=== PATIENT | male | born 1940 | race Caucasian/White ===

== ENCOUNTER → 2017-10-27 | Outpatient (CLI) | payer MEDICARE ==
[2016-08-02 12:00] VITALS: BMI 20.8
[~2017-10-27] MED LIST: ACE325 PO; ASPI-1441 PO; ATOR20TA22 PO; ATR10 PO; CARV12.577 PO; CARV25TA77 PO; CHOLESTEROL PILL; CLO75 PO; CLOP75TA43 PO; DIABETES PILL; DIURETIC; FAMO10TA86 PO; FISH1CAP18 PO; FISHOIL; FUR40I IV; FURO-43 PO; FURO40TA35 PO; GLIM2TAB42 PO; GLUC-192 PO; GLY25 PO; IBUP600T22 PO; IRON; LASIX; LOSA25TA50 PO; MET500 PO; METO5TAB79 PO; MULT-820 PO; NIT6.5 PO; NITR0.4T3 SL; POTA2.5T7 PO; VIT1CAPS34; [UNRECOGNIZED DRUG - CODE] IV; [UNRECOGNIZED DRUG - OTHER]; [UNRECOGNIZED DRUG - OTHER] PO
[2017-10-27 07:58] LABS: PLATELET COUNT, AUTOMATED 180 K/uL (150-450)
== END ==
LOC: LAB 07:23
PROVIDERS: ATTEND Internal Medicine Nephrology
DX: E11.22 Type 2 diabetes mellitus with diabetic chronic kidney disease (principal); N18.3 Chronic kidney disease, stage 3 (moderate); R80.1 Persistent proteinuria, unspecified
CPT/HCPCS: 36415; 82040; 82310; 82374; 82435; 82565; 82570; 82947; 83036; 84100; 84132; 84156; 84295; 84520; 85025

== ENCOUNTER → 2017-11-10 | Outpatient (CLI) | payer MEDICARE ==
[2016-08-02 12:00] VITALS: BMI 20.8
== END ==
LOC: LAB 07:38
PROVIDERS: ATTEND Internal Medicine Nephrology
DX: N18.3 Chronic kidney disease, stage 3 (moderate) (principal)
CPT/HCPCS: 36415; 82310; 82374; 82435; 82565; 82947; 84132; 84295; 84520

== ENCOUNTER 2018-01-28 16:13 | Inpatient (IN) | payer MEDICARE ==
[~2018-01-28] VITALS: Ht 188 cm; Wt 89.4 kg
[~2018-01-28 16:13] MED LIST changes: -LOSA25TA50 PO; +LOSA25TA52 PO
--- NOTE | 2018-01-28 16:18 | ER Report ---
History and Physical Time Seen By MD: 16:18 (BITA GRACIA DO) Time Seen By MD: 18:32 (TERESA ALVAREZ DO) HPI/ROS CHIEF COMPLAINT: lower extremity swelling and wt gain HISTORY OF PRESENT ILLNESS: PT states that the last few days his lower extremities have been swelling. Pt also noticed at 50# wt gain. Pt used to be on a water pill but was taken off it a month ago. Pt state that he came in today because felt sob and some chest pressure this afternoon. Pt states that he feels more sob if he lies flat. Pt sleeps with two pillows. Pt had a cardiac bypass 2 yrs ago and states that he has not had any cp since then. PT states he is in the process of moving to [place] but his co founder & ceo is Dr. Santana here. No nausea or vomiting. REVIEW OF SYSTEMS: Constitutional: No fever, no chills. Eyes: No discharge. ENT: No sore throat. Cardiovascular: + chest pain, no palpitations, + orthopnea Respiratory: No cough, + shortness of breath. Gastrointestinal: No abdominal pain, no vomiting. Genitourinary: No hematuria. Musculoskeletal: No back pain. Skin: No rashes. Neurological: No headache. (BITA GRACIA DO) HPI/ROS Please see Dr. Gracia's note (TERESA ALVAREZ DO) Allergies: Coded Allergies: No Known Drug Allergies (Unverified , 01/28/18) Home Meds Active Scripts Furosemide (FUROSEMIDE) 40 Mg Tablet, 1 TAB PO DAILY, #30 TAB 1 Refill Prov:MACY BALTAZAR MD 01/29/18 Cephalexin Monohydrate (CEPHALEXIN) 250 Mg Cap, 250 MG PO QID for 10 Days, #40 CAP 0 Refills Prov:MCAY BALTAZAR MD 01/29/18 Nitroglycerin (NITROGLYCERIN) 0.4 Mg Tab.subl, 0.4 MG SL Q5MIN PRN for CHEST PAIN, #1 BOTTLE Prov:SYLVIA BALTAZAR MD 08/01/16 Reported Medications Carvedilol (COREG) 25 Mg Tablet, 25 MG PO BID, #10 TAB 08/01/16 Losartan Potassium (LOSARTAN POTASSIUM) 25 Mg Tablet, 25 MG PO QDAY 09/25/15 Glimepiride (Amaryl) 2 Mg Tablet, 6 MG PO QAM 07/15/11 Multivitamins (Multivitamin) 1 Tab Tablet, 1 TAB PO DAILY 07/15/11 Atorvastatin Calcium (Lipitor) 20 Mg Tablet, 40 MG PO QHS, 0 Refills 05/29/08 Aspirin (Aspirin Ec) 81 Mg Tablet.dr, 81 MG PO QDAY, 0 Refills 05/29/08 Discontinued Reported Medications Clopidogrel Bisulfate (PLAVIX) 75 Mg Tablet, 1 TAB PO QDAY, TAB 08/01/16 Metolazone (METOLAZONE) 5 Mg Tablet, 5 MG PO 3XW, #12 08/01/16 Discontinued Scripts Furosemide (LASIX) 40 Mg Tablet, 1 TAB PO BID, #60 TAB Prov:HODAN MIRZA DO 08/03/16 Past Medical/Surgical History Pmhx: hyperlipid, chronic kidney ds, deaf in L ear, CAD, hyponatermiea, DM2, NONSTEMI, CHF Pshx: aicd, hip fx, cabg (BITA GRACIA DO) Reviewed Nurses Notes: Yes Old Medical Records Reviewed: Yes (BITA GRACIA DO) Hx Smoking: No Smoking Status: Never Smoker Exposure to Second Hand Smoke?: No Hx Substance Use Disorder: No Hx Alcohol Use: No (BITA GRACIA DO) Constitutional Vital Sign - Last 24 Hours 01/28/18 01/28/18 01/28/18 01/28/18 16:18 16:21 16:30 16:43 Temp 98.4 Pulse 76 79 Resp 20 12 B/P (MAP) 144/89 144/89 (107) 144/87 (106) Pulse Ox 95 95 O2 Delivery Room Air 01/28/18 01/28/18 01/28/18 01/28/18 17:00 17:13 17:30 17:43 Pulse 71 73 Resp 20 21 B/P (MAP) 137/88 (104) 126/78 (94) Pulse Ox 94 95 01/28/18 01/28/18 01/28/18 01/28/18 17:48 18:00 18:18 18:30 Pulse 71 74 Resp 20 19 B/P (MAP) 144/88 (106) 131/82 (98) Pulse Ox 95 94 01/28/18 01/28/18 01/28/18 01/28/18 18:35 18:50 19:00 19:05 Pulse 70 70 72 Resp 14 14 17 B/P (MAP) 138/91 (107) Pulse Ox 93 95 95 01/28/18 01/28/18 01/28/18 19:20 19:30 19:35 Pulse 73 70 Resp 18 16 B/P (MAP) 135/83 (100) Pulse Ox 96 94 (TERESA ALVAREZ DO) Physical Exam General Appearance: The patient is alert, has no immediate need for airway protection and no signs of toxicity. Eyes: Pupils equal and round no pallor or injection, EOMI ENT: no pharyngeal erythema or exudates, Mucous membranes are moist, TM are nl b/l Respiratory: There are no retractions, lungs b/l rhonchi at bases Cardiovascular: Regular rate and rhythm. pulses are equal and symmetrical Gastrointestinal: Abdomen is soft and non tender, no masses, bowel sounds arabella l, no guarding, no rigidity or rebound Neurological: Cranial nerves II-XII grossly intact, no sensory or motor loss Skin: Warm and dry, + skin break down and ulcerations along the medial aspect of his right foot. Musculoskeletal: Neck is supple non tender, no vertebral tenderness Extremities are nontender, + pitting edema and have full range of motion. DIFFERENTIAL DIAGNOSIS: After history and physical exam differential diagnosis was considered for CHF, acs, vascular dis, acute mi (BITA GRACIA DO) Physical Exam Please see Dr. Gracia (TERESA ALVAREZ DO) Medical Decision Making Data Points Result Diagram: 01/28/18 1626 01/29/18 0529 Laboratory Hematology Test 01/28/18 16:26 01/28/18 19:57 Red Blood Count 3.26 M/uL (4.00-5.60) Mean Corpuscular Volume 101.7 fL (80.0-96.0) Mean Corpuscular Hemoglobin 34.2 pg (26.0-33.0) Mean Corpuscular Hemoglobin Concent 33.7 g/dL (32.0-36.0) Red Cell Distribution Width 13.7 % (11.5-14.5) Mean Platelet Volume 7.4 fL (7.2-11.1) Neutrophils (%) (Auto) 79.5 % (39.4-72.5) Lymphocytes (%) (Auto) 9.3 % (17.6-49.6) Monocytes (%) (Auto) 7.8 % (4.1-12.4) Eosinophils (%) (Auto) 2.5 % (0.4-6.7) Basophils (%) (Auto) 0.9 % (0.3-1.4) Nucleated RBC Relative Count (auto) 0.0 /100WBC Neutrophils # (Auto) 4.7 K/uL (2.0-7.4) Lymphocytes # (Auto) 0.6 K/uL (1.3-3.6) Monocytes # (Auto) 0.5 K/uL (0.3-1.0) Eosinophils # (Auto) 0.1 K/uL (0.0-0.5) Basophils # (Auto) 0.1 K/uL (0.0-0.1) Nucleated RBC Absolute Count (auto) 0.00 K/uL Sodium Level 135 mmol/L (137-145) Potassium Level 5.7 mmol/L (3.5-5.0) Chloride Level 108 mmol/L (98-107) Carbon Dioxide Level 15 mmol/L (22-30) Blood Urea Nitrogen 50 mg/dl (9-21) Creatinine 1.80 mg/dl (0.66-1.25) Glomerular Filtration Rate Calc 36.9 Random Glucose 178 mg/dl (75-110) Calcium Level 8.4 mg/dl (8.4-10.2) Total Bilirubin 0.7 mg/dl (0.2-1.3) Aspartate Amino Transf (AST/SGOT) 22 U/L (0-35) Alanine Aminotransferase (ALT/SGPT) 37 U/L (0-56) Alkaline Phosphatase 75 U/L (0-126) B-Type Natriuretic Peptide 1920 pg/ml (0-100) Total Protein 6.5 g/dl (6.3-8.2) Albumin 3.8 g/dl (3.5-5.0) Troponin I 0.013 ng/ml Chemistry Test 01/28/18 16:26 01/28/18 19:57 White Blood Count 5.9 k/uL (4.5-11.0) Red Blood Count 3.26 M/uL (4.00-5.60) Hemoglobin 11.2 g/dL (14.0-18.0) Hematocrit 33.2 % (42.0-52.0) Mean Corpuscular Volume 101.7 fL (80.0-96.0) Mean Corpuscular Hemoglobin 34.2 pg (26.0-33.0) Mean Corpuscular Hemoglobin Concent 33.7 g/dL (32.0-36.0) Red Cell Distribution Width 13.7 % (11.5-14.5) Platelet Count 209 K/uL (150-450) Mean Platelet Volume 7.4 fL (7.2-11.1) Neutrophils (%) (Auto) 79.5 % (39.4-72.5) Lymphocytes (%) (Auto) 9.3 % (17.6-49.6) Monocytes (%) (Auto) 7.8 % (4.1-12.4) Eosinophils (%) (Auto) 2.5 % (0.4-6.7) Basophils (%) (Auto) 0.9 % (0.3-1.4) Nucleated RBC Relative Count (auto) 0.0 /100WBC Neutrophils # (Auto) 4.7 K/uL (2.0-7.4) Lymphocytes # (Auto) 0.6 K/uL (1.3-3.6) Monocytes # (Auto) 0.5 K/uL (0.3-1.0) Eosinophils # (Auto) 0.1 K/uL (0.0-0.5) Basophils # (Auto) 0.1 K/uL (0.0-0.1) Nucleated RBC Absolute Count (auto) 0.00 K/uL Glomerular Filtration Rate Calc 36.9 Calcium Level 8.4 mg/dl (8.4-10.2) Total Bilirubin 0.7 mg/dl (0.2-1.3) Aspartate Amino Transf (AST/SGOT) 22 U/L (0-35) Alanine Aminotransferase (ALT/SGPT) 37 U/L (0-56) Alkaline Phosphatase 75 U/L (0-126) B-Type Natriuretic Peptide 1920 pg/ml (0-100) Total Protein 6.5 g/dl (6.3-8.2) Albumin 3.8 g/dl (3.5-5.0) Troponin I 0.013 ng/ml (TERESA ALVAREZ DO) EKG/Imaging EKG Interpretation nsr @ 77 with first degree av block with low voltage. Similar to prior ekg on february 2016 Imaging + small pleural effusion evidient on right. See report (BITA GRACIA DO) ED Course/Re-evaluation Clinical Indication for ER IV: IV Access ED Course check labs 01/28/2018 5:38:30 pm Pt is starting to urinate post lasix. Will keep pt here for second troponin. If he shows any bump in troponin he will need to be transferred. If no change in troponin he can stay here for chf exacerbation and restart his lasix. If he chooses not to stay then i would continue oral lasix until he can see his co founder & ceo next week. Decision to Disposition Date: Jan 28, 2018 Decision to Disposition Time: 16:28 (BITA GRACIA DO) ED Course I took over care of this patient at 1800. Plan is to repeat a 2nd troponin tendency to admission due to patient's significant weight gain likely secondary to congestive heart failure and the patient stopping Lasix approximately 1 month prior due to dehydration. Patient received 40 mg of IV Lasix for diuresis. I reevaluated the patient after repeat troponin back at 0.013 change to only from 0.012 from earlier in the patient denied chest pain, chest pressure. Patient was well-appearing at that time, hemodynamically stable. I talked to Dr. Sabrina oviedo who is the internal medicine doctor information technology coordinator who accepted the patient to his service for inpatient diuresis and stabilization. Patient was stable at time of admission. Decision to Disposition Date: Jan 28, 2018 Decision to Disposition Time: 20:53 (TERESA ALVAREZ DO) Depart Departure Latest Vital Signs Vital Signs Date Time Temp Pulse Resp B/P (MAP) Pulse Ox O2 Delivery O2 Flow Rate FiO2 01/28/18 19:35 70 16 94 01/28/18 19:30 135/83 (100) 01/28/18 16:18 98.4 Room Air (TERESA ALVAREZ DO) Impression: Primary Impression: Congestive heart failure Additional Impression: Edema of lower extremity Condition: Improved Disposition: Admitted from ER Referrals: HODAN LIANG MD (PCP) SIMI SANTANA MD 2 Days New Scripts Furosemide (FUROSEMIDE) 40 Mg Tablet 1 TAB PO DAILY, #30 TAB 1 Refill Prov: MACY BALTAZAR MD 01/29/18 Cephalexin Monohydrate (CEPHALEXIN) 250 Mg Cap 250 MG PO QID for 10 Days, #40 CAP 0 Refills Prov: MACY BALTAZAR MD 01/29/18 Problem Qualifiers Primary Impression: Congestive heart failure Heart failure type: unspecified Heart failure chronicity: acute Qualified Codes: I50.9 - Heart failure, unspecified BITA GRACIA V DO Jan 28, 2018 16:18 TERESA ALVAREZ DO Jan 28, 2018 18:33
[2018-01-28] MEDS ORDERED: ASPIRIN 81 MG CHEW PO ONE (16:25)
--- NOTE | 2018-01-28 16:33 | EKG ---
FACILITY: [facility] - [place] PATIENT NAME: YULISSA OLIVA : [id number] MR: [id number] V: [id number] EXAM DATE: ORDERING PHYSICIAN: BITA GRACIA TECHNOLOGIST: Test Reason : chest pain Blood Pressure : / mmHG Vent. Rate : 076 BPM Atrial Rate : 076 BPM P-R Int : 234 ms QRS Dur : 112 ms QT Int : 398 ms P-R-T Axes : 028 001 081 degrees QTc Int : 447 ms Sinus rhythm with 1st degree AV block Low voltage QRS Non-specific intraventricular conduction delay Abnormal ECG When compared with ECG of 31-JUL-2016 09:14, No significant change was found Confirmed by Cody Alfredo ([id number]) on 01/28/2018 8:11:19 PM Referred By: Confirmed By:Cody Myers
[2018-01-28 16:39] LABS: PLATELET COUNT, AUTOMATED 209 K/uL (150-450)
[2018-01-28] MEDS ORDERED: FUROSEMIDE 40 MG/4 ML VIAL IVP ONE ×2 (17:10→23:30)
--- NOTE | 2018-01-28 17:11 | RADIOLOGY IMAGING REPORT ---
FACILITY: [facility] PATIENT NAME: Tanner Gill : 1940 MR: [id number] V: [id number] EXAM DATE: ORDERING PHYSICIAN: BITA GRACIA TECHNOLOGIST: [place] [facility] [place]anner [place] : 1940 Visit/Account:[id number] Date of Sevice: 01/28/2018 2 VIEWS CHEST INDICATION: Shortness of breath and leg swelling. COMPARISON: 07/31/2016. FINDINGS: Cardiac silhouettes upper limits normal for size. Mediastinal silhouette and pulmonary vessels within normal limits. Left subclavian 2-lead pacemaker is in place and unchanged. Sternotomy changes. There continues be elevation left hemidiaphragm. No focal consolidations or pneumothorax. Mild blunti ng the right costophrenic angle. Left costophrenic angle appears to be well visualized. No discrete n odules. Upper abdomen is unremarkable. No acute bony abnormality. IMPRESSION: 1. No focal infiltrate or edema. 2. Minimal blunting of the right costophrenic angle could be due to pleural thickening or small effus ion. Report Dictated By: Barry Pastor at 01/28/2018 5:04 PM Report E-Signed By: Barry Pastor at 01/28/2018 5:08 PM WSN:[id number]
[2018-01-28 21:35] VITALS: BP 142/85
[2018-01-28] MEDS ORDERED: ACETAMINOPHEN 325 MG TAB PO PRN (22:50)
[2018-01-28] MEDS ORDERED: FLUSH 10 ML SYR IVP PRN (22:50)
[2018-01-28] MEDS ORDERED: INFLUENZA VIRUS VAC 0.5ML SYR IM ONLY ONE (22:50)
[2018-01-28] MEDS ORDERED: ONDANSETRON 4 MG/2 ML VIAL IVP PRN (22:50)
--- NOTE | 2018-01-29 00:33 | History & Physical ---
History of Present Illness Chief Complaint edema, ZEPEDA History of Present Illness 77M with PMHx CHF presented with reported 50lb weight gain, LE edema, SOB. Reports he was taken off diuretic and doing ok until 1 week ago. Noted increase in edema and weight gain. Last echo on file is 2008, he is unsure when his last echo was or what the results were. Unable to lie flat but says this is chronic and primarily unchanged. Does report moving currenlty and as such has not adhered to medication regimen missing occasional doses. History Problems: (1) CKD (chronic kidney disease) stage 3, GFR 30-59 ml/min Status: Chronic (2) Congestive heart failure Status: Chronic (3) CAD (coronary artery disease) Status: Chronic Home Meds Active Scripts Nitroglycerin (NITROGLYCERIN) 0.4 Mg Tab.subl, 0.4 MG SL Q5MIN PRN for CHEST PAIN, #1 BOTTLE Prov:SYLVIA BALTAZAR MD 08/01/16 Reported Medications Carvedilol (COREG) 25 Mg Tablet, 25 MG PO BID, #10 TAB 08/01/16 Losartan Potassium (LOSARTAN POTASSIUM) 25 Mg Tablet, 25 MG PO QDAY 09/25/15 Glimepiride (Amaryl) 2 Mg Tablet, 6 MG PO QAM 07/15/11 Multivitamins (Multivitamin) 1 Tab Tablet, 1 TAB PO DAILY 07/15/11 Atorvastatin Calcium (Lipitor) 20 Mg Tablet, 40 MG PO QHS, 0 Refills 05/29/08 Aspirin (Aspirin Ec) 81 Mg Tablet.dr, 81 MG PO QDAY, 0 Refills 05/29/08 Discontinued Reported Medications Clopidogrel Bisulfate (PLAVIX) 75 Mg Tablet, 1 TAB PO QDAY, TAB 08/01/16 Metolazone (METOLAZONE) 5 Mg Tablet, 5 MG PO 3XW, #12 08/01/16 Discontinued Scripts Furosemide (LASIX) 40 Mg Tablet, 1 TAB PO BID, #60 TAB Prov:HODAN MIRZA DO 08/03/16 Allergies: Coded Allergies: No Known Drug Allergies (Unverified , 01/28/18) Patient History: FH: colon cancer BROTHER OR SISTER, Age:71 FH: depression FATHER, , Age:74 FH: diabetes mellitus BROTHER OR SISTER, Age:71 FH: myocardial infarction MOTHER (Bierke), , Age:68 FH: stomach cancer BROTHER OR SISTER, Age:71 Hx Smoking: No Smoking Status: Never Smoker Exposure to Second Hand Smoke?: No Caffeine Intake: Coffee Caffeine/Cups Per Day: 4 CUPS/DAY Hx Alcohol Use: No Hx Substance Use Disorder: No Social Drug Use: Never History of IV Drug Use: No Review of Systems All Systems Reviewed/Normal: Yes, Except as Noted Constitutional: Weight Gain Cardiovascular: Other (+ edema) Respiratory: Shortness of Breath Exam Vital Signs Vital Signs Date Time Temp Pulse Resp B/P (MAP) Pulse Ox O2 Delivery O2 Flow Rate FiO2 01/28/18 22:10 94 Room Air 01/28/18 21:10 72 10 01/28/18 21:00 135/86 (102) 01/28/18 16:18 98.4 General Appearance: Alert, Awake, No Acute Distress Neuro: No Gross deficits Eyes: PERRLA ENT: Normal Neck: No Masses Cardiovascular: Normal Rhythm & Peripheral Pulses (+ 3/6 murmus at LSB, displaced PMI) Respiratory: No Respiratory Distress GI: Abd Soft and Non-Tender Lymph: Cervical Nodes Benign Musculoskeletal: No Weakness/Pain Extremities: Soft and Non Tender, Warm, Pulses, Edema (moderate to mid thigh) Integumentary: Generalized Fragile Skin Psych: Appropriate Mood & Affect Medical Decision Making Data Points Result Diagram: 01/28/18 1626 01/28/18 162 Assessment and Plan Problems: (1) Congestive heart failure Status: Chronic Assessment & Plan: Acute on chronic heart failure. Diuresis with IV Lasix, monitor electrolytes. Likely needs diuretic added back to regimen. Has permanent implantable defibrillator, he does not seem clear on why he has it. ECHO pending. CXR possible pleural effusion on left, cardiac silhouette ULN. (2) CKD (chronic kidney disease) stage 3, GFR 30-59 ml/min Status: Chronic Assessment & Plan: Cr 1.8 on admission, will monitor with diuresis. 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 (3) Edema of lower extremity Status: Acute Assessment & Plan: Secondary to decompensation of CHF. Diuresis, R slightly greater than L may consider Doppler. (4) CAD (coronary artery disease) Status: Chronic Assessment & Plan: Previous CABG. Per pt 6 vessel, on statin, BB, ARB. Will continue so long as BP does not preclude diuresis. (5) Hyperkalemia Status: Chronic Assessment & Plan: Mild elevation, no EKG changes. Should resolve with diuresis. Likely caused by ARB and CKD. Venous Thromboembolism Antithrombotics Is Pt On Any Antithrombotics?: Yes Exam Sepsis Risk: No Definite Risk Problem Qualifiers (1) Congestive heart failure: Heart failure type: unspecified Heart failure chronicity: acute on chronic Qualified Codes: I50.9 - Heart failure, unspecified BARRINGTON RICHARDS DO Jan 29, 2018 00:33
[2018-01-29 03:01] VITALS: BP 136/84
[2018-01-29 08:00] VITALS: BP 146/86
[2018-01-29] MEDS: INSULIN HUM LISPRO 100 UN/ML 3 ML VIAL SUBQ PRN ×2 (08:18→11:24)
[2018-01-29] MEDS: FUROSEMIDE 40 MG/4 ML VIAL IVP SCH ×2 (08:20→12:55)
[2018-01-29] MEDS ORDERED: ENOXAPARIN 40 MG/0.4ML SYR SC SCH (09:00)
[2018-01-29] MEDS ORDERED: LOSARTAN POTASSIUM 50 MG TAB PO SCH (09:00)
[2018-01-29] MEDS ORDERED: CARVEDILOL 25 MG TABLET PO SCH (09:00)
[2018-01-29] MEDS ORDERED: GLIMEPIRIDE 2 MG TAB PO SCH (09:00)
[2018-01-29] MEDS ORDERED: ASPIRIN 81 MG ENTERIC COATED PO SCH (09:00)
[2018-01-29 09:12] VITALS: Ht 188 cm; Wt 89.4 kg
[2018-01-29] MEDS ORDERED: CEPHALEXIN MONO 500 MG CAP PO SCH (09:15)
--- NOTE | 2018-01-29 09:28 | Hospitalist Progress Note ---
Subjective Progress Notes Subjective He reports feeling "good". Less edema. No CP/dyspnea at rest. Physical Exam Vital Signs Date Time Temp Pulse Resp B/P (MAP) Pulse Ox O2 Delivery O2 Flow Rate FiO2 01/29/18 03:01 97.6 68 12 136/84 (101) 94 Room Air Intake and Output 01/29/18 07:00 Output Total 3160 ml Balance -3160 ml Output Urine Total 3160 ml # Voids 5 General Appearance: Alert, Awake Cardiovascular: Other (Regular with distant tones soft systolic murmur) Respiratory: Other (essentially clear) GI: Soft and Non-Tender Extremities: Warm, Perfused, Edema (2+ to mid-thighs bilaterally) Integumentary: Generalized Fragile Skin, Other (ulcers over right medial malleolous/distal tibia area with some mild erythema surrounding/no dranage at present) Psych: Alert & Oriented X3 Result Diagram: 01/28/18 1626 01/29/18 0529 Assessment and Plan Problems: (1) Congestive heart failure Status: Chronic Assessment & Plan: Acute on chronic heart failure. Most likely due to missing several days of his medications and having his diuretic regimen stopped several months ago. He has diuresed with IV Lasix. He likely needs diuretic added back to regimen. Echocardiogram pending. (2) CKD (chronic kidney disease) stage 3, GFR 30-59 ml/min Status: Chronic Assessment & Plan: Cr 1.8 on admission. Will continue to monitor with diuresis. 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 (3) Edema of lower extremity Status: Acute Assessment & Plan: Secondary to decompensation of CHF. Diuresis, R slightly greater than L may consider Doppler. (4) CAD (coronary artery disease) Status: Chronic Assessment & Plan: Previous CABG. Will continue aspirin, statin, beta chely. (5) Hyperkalemia Status: Chronic Assessment & Plan: Resolved. We have stopped ARB. Mild elevation, no EKG changes. Improved with diuresis. Likely caused by ARB and CKD. 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 He may have difficulty healing these due to the edema/vascular disease. Will have PT wound care see for recommendations. Start Keflex 250mg PO QID (renal dosed). Exam Sepsis Risk: No Definite Risk Problem Qualifiers (1) Congestive heart failure: Heart failure type: unspecified Heart failure chronicity: acute on chronic Qualified Codes: I50.9 - Heart failure, unspecified MACY BALTAZAR MD Jan 29, 2018 09:27
[2018-01-29] MEDS: CEPHALEXIN MONO 250 MG CAP PO SCH ×2 (10:14→13:55)
[2018-01-29 11:16] VITALS: BP 115/74
--- NOTE | 2018-01-29 13:02 | Medical Nutrition Therapy ---
Nutrition Anthropometrics Height (Inches): 74.00 Height (Calculated Centimeters: 187.157228 Weight (Pounds): 197 Weight (Calculated Kilograms): 89.358 BMI: 25.3 Yaron Nutrition Score: Adequate Yaron Nutrition Risk Score: 20 Dietary Referral Nutrition Risk Factors: Nutrition Risk Comment: DIABETIC Physical Findings Physical Appearance: Overweight BMI 25-29 Skin Appearance Skin Appearance: Edema Edema Location Modifier: Both Edema Location: Leg Type of Edema: Degree of Edema: 1+ Gastrointestinal Symptoms GI Symtoms: Tube Present: Bowel Sounds: Recent Bowel Pattern: Stool Characteristics: Nutritional Diagnosis Nutritional Risk Acuity 2: CHF w/Complication Nutritional Risk Acuity 3: Nausea Nutritional Risk Acuity 4: Good Appetite Past Medical History: Hx of CKD, CHF, CAD, and T2DM. Nutritional Acuity: 2-Moderate Nutrition Diagnosis: Over-weight/Obesity Nutrition Etiology: Physiological Causes Nutrition Problem/Etiology/Sym: Overweight/ obese, as related to physiological causes, as evidenced by recent weight gain and edema, after being taken off diuretic. Energy Requirement: 2200 ([place], AF-1.3) Protein Requirement: 70 (.8g/kg) Fluid Requirement: 2200 (1ml/kcal) Diet Type: Diabetic Nutrition Intervention: Cont diet as ordered, Encourage intake Nutrition Monitoring & Eval RD Patient Assessment Time: [address] Assessment Type: RD Assessment Patient Nutrition Acuity: 2-Moderate Follow Up Date: Feb 03, 2018 Nutritional Comment: 01/29. Pt is being treated for edema of both lower extremities and chronic CHF, CKD, CAD, and hyperkalemia. Pt also has a large blister on virgen. Pt has hx of T2DM, currently receiving 1-5 units humalog SUBQ. pt also receiving 40mg potassium depleting diuretic. Noted pt was recently taken off of diuretic 1 week ago by physician, since then has seen increase in weight and edema. Pt reported a 50lb weight gain, likely due to discontinued diuretuc and increase in fluid accumulation. Notable labs include low sodium 135, calcium 8.3 and elevated BUN 49, creatinine 1.8, random BG 167, whole BG 178, and B-natriuretic peptide 1920. Pt is on a diabetic diet, consumed 100% of breakfast meal this morning. Pt is 74in, 197lbs, and has a BMI of 25. Recommend 2200 kcal and 70 g protein each day. Will monitor pt weight. CARLOS MUSE Jan 29, 2018 11:21
[2018-01-29] MEDS ORDERED: FURO-47 PO (13:58)
[2018-01-29] MEDS ORDERED: CEPH250C11 PO (13:58)
--- NOTE | 2018-01-29 14:11 | Hospitalist Depart ---
Discharge Summary Reason for Hosp/Final Diag: (1) Congestive heart failure Status: Chronic Hospital Course & Plan: Acute on chronic heart failure. Most likely due to missing several days of his medications and having his diuretic regimen stopped several months ago. He was diuresed with IV Lasix and seemed to tolerate fairly well. We did add a diuretic back to his regimen (Lasix 40mg daily). We did repeat the echocardiogram and final results are still pending at the time of discharge. He will follow up with Dr. Efrain Santana (cardiology) and Dr. Liang as an outpatient. (2) CKD (chronic kidney disease) stage 3, GFR 30-59 ml/min Status: Chronic Hospital Course & Plan: Creatinine was 1.8 on admission. We did monitor with diuresis and it remained 1.8. He reports his csr (Dr. Stephens) and implementation analyst stopped Lasix because of change in kidney function. He will follow up closely with them as an outpatient. (3) Edema of lower extremity Status: Acute Hospital Course & Plan: Secondary to decompensation of CHF/pulmonary hypertension. He has shown improvement with diuresis. (4) CAD (coronary artery disease) Status: Chronic Hospital Course & Plan: Previous CABG. Will continue aspirin, statin, beta chely. (5) Hyperkalemia Status: Chronic Hospital Course & Plan: Resolved. We initially held his ARB therapy, but have re-started. He will need close follow up on his electrolytes/renal function as an outpatient. (6) Lower extremity ulceration Status: Acute Hospital Course & Plan: He reports these began following injury while working on his cars. He may have difficulty healing these due to the edema/vascular disease. PT wound care team did see him and have recommend he continue to have wound care with them as an outpatient. We have arranged this for him. We also started Keflex 250mg PO QID (renal dosed). Departure Weight (Pounds): 197 Weight (Ounces): 2.0 Result Diagram: 01/28/18162501/29/18 0529 Item Value Date Time Albumin 3.8 g/dl 01/28/18 162 Total Protein 6.5 g/dl 01/28/18 162 Troponin I < 0.012 ng/ml 01/28/18 162 B-Type Natriuretic Peptide 1920 pg/ml H 01/28/18 1626 Troponin I 0.013 ng/ml 01/28/181956 Alkaline Phosphatase 75 U/L 01/28/18 1626 Alanine Aminotransferase (ALT/SGPT) 37 U/L 01/28/18 1626 Aspartate Amino Transf (AST/SGOT) 22 U/L 01/28/18 162 Total Bilirubin 0.7 mg/dl 01/28/18 1626 Calcium Level 8.4 mg/dl 01/28/18 1626 Random Glucose 178 mg/dl H 01/28/18 1626 Glomerular Filtration Rate Calc 36.9 01/28/18 1626 Creatinine 1.80 mg/dl H 01/28/18 1626 Blood Urea Nitrogen 50 mg/dl H 01/28/18 1626 Carbon Dioxide Level 15 mmol/L L 01/28/18 1626 Chloride Level 108 mmol/L H 01/28/18 1626 Potassium Level 5.7 mmol/L H 01/28/18 162 Sodium Level 135 mmol/L L 01/28/18 162 Imaging PATIENT NAME: Tanner Gill : 1940 MR: [id number] V: [id number] EXAM DATE: [id number] ORDERING PHYSICIAN: BITA GRACIA TECHNOLOGIST: Location: [facility] [place] Patient: Tanner Gill : 1940 Visit/Account:[id number] Date of Sevice: 01/28/2018 2 VIEWS CHEST INDICATION: Shortness of breath and leg swelling. COMPARISON: 07/31/2016. FINDINGS: Cardiac silhouettes upper limits normal for size. Mediastinal silhouette and pulmonary vessels within normal limits. Left subclavian 2-lead pacemaker is in place and unchanged. Sternotomy changes. There continues be elevation left hemidiaphragm. No focal consolidations or pneumothorax. Mild blunting the right costophrenic angle. Left costophrenic angle appears to be well visualized. No discrete nodules. Upper abdomen is unremarkable. No acute bony abnormality. IMPRESSION: 1. No focal infiltrate or edema. 2. Minimal blunting of the right costophrenic angle could be due to pleural thickening or small effusion. Report Dictated By: Barry Pastor at 01/28/2018 5:04 PM Report E-Signed By: Barry Pastor at 01/28/2018 5:08 PM WSN:[id number] Condition: Improved Discharge: Home Time Spent: > 30 min Discharge Instructions Home Meds Active Scripts Furosemide (FUROSEMIDE) 40 Mg Tablet, 1 TAB PO DAILY, #30 TAB 1 Refill Prov:MACY BALTAZAR MD 01/29/18 Cephalexin Monohydrate (CEPHALEXIN) 250 Mg Cap, 250 MG PO QID for 10 Days, #40 CAP 0 Refills Prov:MACY BALTAZAR MD 01/29/18 Nitroglycerin (NITROGLYCERIN) 0.4 Mg Tab.subl, 0.4 MG SL Q5MIN PRN for CHEST PAIN, #1 BOTTLE Prov:SYLVIA BALTAZAR MD 08/01/16 Reported Medications Carvedilol (COREG) 25 Mg Tablet, 25 MG PO BID, #10 TAB 08/01/16 Losartan Potassium (LOSARTAN POTASSIUM) 25 Mg Tablet, 25 MG PO QDAY 09/25/15 Glimepiride (Amaryl) 2 Mg Tablet, 6 MG PO QAM 07/15/11 Multivitamins (Multivitamin) 1 Tab Tablet, 1 TAB PO DAILY 07/15/11 Atorvastatin Calcium (Lipitor) 20 Mg Tablet, 40 MG PO QHS, 0 Refills 05/29/08 Aspirin (Aspirin Ec) 81 Mg Tablet.dr, 81 MG PO QDAY, 0 Refills 05/29/08 Discontinued Reported Medications Clopidogrel Bisulfate (PLAVIX) 75 Mg Tablet, 1 TAB PO QDAY, TAB 08/01/16 Metolazone (METOLAZONE) 5 Mg Tablet, 5 MG PO 3XW, #12 08/01/16 Discontinued Scripts Furosemide (LASIX) 40 Mg Tablet, 1 TAB PO BID, #60 TAB Prov:HODAN MIRZA DO 08/03/16 Follow up Referrals: [facility] @ [facility] with SIMI SANTANA MD Family Practice @ [facility] with HODAN LIANG MD Nephrology @ [facility] with STEVE STEPHENS MD Diet: No Added Salt (ELKE) Activity: As Tolerated (Elevate feet frequently) Special Instructions: Follow up with Physical Therapy Wound Care as planned early next week. Follow up with Dr. Liang/Akash in next 5-10 days. Follow up with Dr. Dion Santana (cardiology) in next 1-2 weeks. Follow up with Dr. Stephens (nephrology) in next 1-2 weeks. Copies to: SIMI SANTANA MD; HODAN LIANG MD; STEVE STEPHENS MD ; Venous Thromboembolism Antithrombotics Is Pt On Any Antithrombotics?: Yes Problem Qualifiers (1) Congestive heart failure: Heart failure type: unspecified Heart failure chronicity: acute on chronic Qualified Codes: I50.9 - Heart failure, unspecified MACY BALTAZAR MD Jan 29, 2018 14:11
[2018-01-29] MEDS ORDERED: ATORVASTATIN 40 MG TAB PO SCH (21:00)
== END 2018-01-29 16:15 | disposition home or self-care (01) | DRG 292 ==
LOC: ER 16:21 → MED 21:26
PROVIDERS: ADMIT Internal Medicine; ATTEND Internal Medicine
PROC: 0JDQ3ZZ Extraction of Right Foot Subcutaneous Tissue and Fascia, Percutaneous Approach (ICD-10-PCS; principal; 2018-01-29)
PROC: 0JDQ3ZZ Extraction of Right Foot Subcutaneous Tissue and Fascia, Percutaneous Approach (ICD-10-PCS; 2018-01-29)
DX: I50.9 Heart failure, unspecified (principal); L97.311 Non-pressure chronic ulcer of right ankle limited to breakdown of skin; E11.22 Type 2 diabetes mellitus with diabetic chronic kidney disease; N18.3 Chronic kidney disease, stage 3 (moderate); E87.5 Hyperkalemia; L97.511 Non-pressure chronic ulcer of other part of right foot limited to breakdown of skin; E78.5 Hyperlipidemia, unspecified; I25.10 Atherosclerotic heart disease of native coronary artery without angina pectoris; H91.92 Unspecified hearing loss, left ear; I27.20 Pulmonary hypertension, unspecified; I25.2 Old myocardial infarction; Z95.1 Presence of aortocoronary bypass graft; Z95.810 Presence of automatic (implantable) cardiac defibrillator; Z79.84 Long term (current) use of oral hypoglycemic drugs
CPT/HCPCS: 36415; 36416; 71046; 82040; 82247; 82310; 82374; 82435; 82565; 82947; 82948; 83880; 84075; 84132; 84155; 84295; 84450; 84460; 84484; 84520; 85025; 93005; 96374; 97161; 99284; C8929; J1650; J1940; Q9957

== ENCOUNTER 2018-02-25 11:15 | Outpatient (RCR) | payer MEDICARE ==
[2018-01-29 09:12] VITALS: BMI 25.3
--- NOTE | 2018-02-01 16:42 | PT INITIAL EVALUATION ---
MEDICAL DIAGNOSIS: Ulcerations of R) medial ankle TREATMENT DIAGNOSIS: Ulcerations of R) medial ankle DATE OF ONSET: Pt reports ulcers began "2-3 weeks ago" SUBJECTIVE: Pt presents to wound care evaluation with dressings in place from hospitalization at [facility] from 01/28/18-01/29/18. The patient was evaluated by wound care team during his inpatient stay and referred to outpatient wound care. Pt reports that he is currently in the process of moving to [place], and approx 3 weeks ago he developed wounds on the medial portion of the right ankle from is feet , "rubbing and I couldn't feel them." Pt presents with dressings intact but saturated. Intact blister present on the R) lateral, distal virgen. REHAB PROBLEM LIST: Open wounds PREVIOUS MEDICAL HISTORY: CKD, CHF, CAD, DMII, CABG, Non-Stemi, HLD , peripheral neuropathy OBJECTIVE: Sensation: Impaired d/t peripheral neuropathy Other Objective Findings: Wound Measurements: R) medial, proximal ankle: 6.2 cm L x 4.2 cm W x 0.2 cm D R) medial, distal ankle: 3.6 cm L x 3.3 cm W x 0.2 cm D ASSESSMENT: Ulcerations present on medial ankle of unclear etiology, likely due to pressure/friction to the area, but with possibly a component of mixed disease caused by the patient spending extended time with LEs in a dependent position. Periwound tissue demonstrates moderate erythema, pt reports that he is currently taking a 10 day course of oral abx since d/c from hospital on 01/29/18. Wounds demonstrate moderate amounts of adhered slough across middle of wound bases. PT completed conservative, selective debridement of non-viable tissue and slough with tweezers to the depth of the subcutaneous tissue. Wound base treated with calcium alginate with silver, followed by silicone bordered 4x4 dressings. Pt plans to make another trip to [place] this week and is agreeable to complete dressing changes on and Thursday, with plans to f/u with OP PT on 02/11/18. Pt provided with visual, verbal and written instruction and given appropriate wound care dressing supplies. Short Term Goals 1: Pt to maintain clean, dry and intact dressings in between wound care visits and complete home dressings as instructed. 2: Wounds base to demonstrate 100% granulation tissue with no s/s of infection. 3: Wounds to gradually epithelialize from the edges inward and demonstrate 100% closure. 4: Pt to be educated on preventive foot care to prevent further ulcerations. Patient's Goals: Wound healing PLAN: Patient to be seen for advanced PT wound care to include conservative, selective sharps debridement as well as advanced wound care product selection and application 1-2x/week for Up to 90 days, Thank you for this referral. If you have any questions, comments, or concerns about this report or plan, please contact me at . Kristel Ulloa, PT, DPT MTDD
[~2018-02-25 11:15] MED LIST changes: +CEPH250C11 PO; +FURO-47 PO
== END 2018-02-25 18:00 | disposition home or self-care (01) ==
LOC: PT 11:15
PROVIDERS: ATTEND Family Medicine
DX: L89.512 Pressure ulcer of right ankle, stage 2 (principal); I25.2 Old myocardial infarction; I25.10 Atherosclerotic heart disease of native coronary artery without angina pectoris; I50.9 Heart failure, unspecified; N18.9 Chronic kidney disease, unspecified; E78.5 Hyperlipidemia, unspecified; E11.65 Type 2 diabetes mellitus with hyperglycemia; Z95.1 Presence of aortocoronary bypass graft
CPT/HCPCS: 97161

== ENCOUNTER 2018-03-21 09:28 | Inpatient (IN) | payer MEDICARE ==
[~2018-03-21] VITALS: Ht 188 cm; Wt 83.5 kg
--- NOTE | 2018-03-21 09:24 | ER Report ---
History and Physical Time Seen By MD: 09:24 HPI/ROS CHIEF COMPLAINT: Shortness breath, dizziness, general malaise HISTORY OF PRESENT ILLNESS: Patient is a 78-year-old male here with complaints of shortness breath, difficulty taking a deep breath, dizziness, weakness, fatigue. Patient reports a history significant for CHF, headache, diabetes. Patient reports that over the past several weeks he has not been taking a diuretic and reports increase in shortness breath and fluid retention. He reports he has been having difficulty taking deep breaths recently. I also reports that he feels dizzy and lightheaded. Patient was noted to be afebrile, tachycardic at time of evaluation. Denies falling or recent trauma. REVIEW OF SYSTEMS: Constitutional: No fever, no chills. Eyes: No discharge. ENT: No sore throat. Cardiovascular: No chest pain, no palpitations. Respiratory: No cough, + shortness of breath. Gastrointestinal: No abdominal pain, no vomiting. Genitourinary: No hematuria. Musculoskeletal: No back pain. Skin: No rashes. Neurological: + dizziness, weakness Allergies: Coded Allergies: No Known Drug Allergies (Unverified , 01/28/18) Home Meds Active Scripts Furosemide (FUROSEMIDE) 40 Mg Tablet, 1 TAB PO DAILY, #30 TAB 1 Refill Prov:MACY BALTAZAR MD 01/29/18 Cephalexin Monohydrate (CEPHALEXIN) 250 Mg Cap, 250 MG PO QID for 10 Days, #40 CAP 0 Refills Prov:MACY BALTAZAR MD 01/29/18 Nitroglycerin (NITROGLYCERIN) 0.4 Mg Tab.subl, 0.4 MG SL Q5MIN PRN for CHEST PAIN, #1 BOTTLE Prov:SYLVIA BALTAZAR MD 08/01/16 Reported Medications Carvedilol (COREG) 25 Mg Tablet, 25 MG PO BID, #10 TAB 08/01/16 Losartan Potassium (LOSARTAN POTASSIUM) 25 Mg Tablet, 25 MG PO QDAY 09/25/15 Glimepiride (Amaryl) 2 Mg Tablet, 6 MG PO QAM 07/15/11 Multivitamins (Multivitamin) 1 Tab Tablet, 1 TAB PO DAILY 07/15/11 Atorvastatin Calcium (Lipitor) 20 Mg Tablet, 40 MG PO QHS, 0 Refills 05/29/08 Aspirin (Aspirin Ec) 81 Mg Tablet.dr, 81 MG PO QDAY, 0 Refills 05/29/08 Hx Smoking: No Smoking Status: Never Smoker Exposure to Second Hand Smoke?: No Hx Substance Use Disorder: No Hx Alcohol Use: No Constitutional Vital Sign - Last 24 Hours 03/21/18 03/21/18 03/21/18 03/21/18 09:29 09:35 09:47 09:47 Pulse 99 96 Resp 20 17 B/P (MAP) 107/71 (83) 107/71 Pulse Ox 94 96 O2 Delivery Room Air Room Air 03/21/18 03/21/18 03/21/18 03/21/18 09:58 10:28 10:58 11:03 Pulse 95 96 98 97 Resp 19 17 10 18 Pulse Ox 95 96 92 94 03/21/18 03/21/18 03/21/18 03/21/18 11:19 11:30 11:33 12:30 Pulse 95 Resp 18 B/P (MAP) 144/91 (108) 139/97 (111) 146/100 (115) 03/21/18 03/21/18 03/21/18 12:33 13:00 13:30 Pulse 96 93 96 Resp 11 16 8 B/P (MAP) 142/98 (113) 143/93 (110) Physical Exam General Appearance: The patient is alert, has no immediate need for airway protection and no signs of toxicity. NAD Eyes: Pupils equal and round no pallor or injection. ENT, Mouth: Mucous membranes are moist. Respiratory: There are no retractions, lungs are clear to auscultation. Cardiovascular: + tachycardic Gastrointestinal: Abdomen is soft and non tender, no masses, bowel sounds normal. Neurological: No focal weakness Skin: Warm and dry, no rashes. Musculoskeletal: Neck is supple non tender. Extremities are nontender, nonswollen and have full range of motion. DIFFERENTIAL DIAGNOSIS: After history and physical exam differential diagnosis was considered for dizziness including but not limited to peripheral and central causes of vertigo, orthostatic causes including dehydration, and blood loss, CHF, volume overload Medical Decision Making Data Points Result Diagram: 03/21/18 1034 03/21/18 1537 Laboratory Hematology Test 03/21/18 10:34 Red Blood Count 3.27 M/uL (4.00-5.60) Mean Corpuscular Volume 100.8 fL (80.0-96.0) Mean Corpuscular Hemoglobin 34.3 pg (26.0-33.0) Mean Corpuscular Hemoglobin Concent 34.0 g/dL (32.0-36.0) Red Cell Distribution Width 14.8 % (11.5-14.5) Mean Platelet Volume 7.3 fL (7.2-11.1) Neutrophils (%) (Auto) 85.1 % (39.4-72.5) Lymphocytes (%) (Auto) 6.4 % (17.6-49.6) Monocytes (%) (Auto) 6.9 % (4.1-12.4) Eosinophils (%) (Auto) 0.7 % (0.4-6.7) Basophils (%) (Auto) 0.9 % (0.3-1.4) Nucleated RBC Relative Count (auto) 0.0 /100WBC Neutrophils # (Auto) 4.3 K/uL (2.0-7.4) Lymphocytes # (Auto) 0.3 K/uL (1.3-3.6) Monocytes # (Auto) 0.4 K/uL (0.3-1.0) Eosinophils # (Auto) 0.0 K/uL (0.0-0.5) Basophils # (Auto) 0.0 K/uL (0.0-0.1) Nucleated RBC Absolute Count (auto) 0.00 K/uL Prothrombin Time 14.8 seconds (12.0-14.4) Prothromb Time International Ratio 1.16 Activated Partial Thromboplast Time 32 seconds (23-35) Total Bilirubin 0.9 mg/dl (0.2-1.3) Aspartate Amino Transf (AST/SGOT) 10 U/L (0-35) Alanine Aminotransferase (ALT/SGPT) 25 U/L (0-56) Alkaline Phosphatase 75 U/L (0-126) Troponin I 0.015 ng/ml B-Type Natriuretic Peptide 2240 pg/ml (0-100) Total Protein 6.7 g/dl (6.3-8.2) Albumin 3.8 g/dl (3.5-5.0) Chemistry Test 03/21/18 10:34 White Blood Count 5.1 k/uL (4.5-11.0) Red Blood Count 3.27 M/uL (4.00-5.60) Hemoglobin 11.2 g/dL (14.0-18.0) Hematocrit 32.9 % (42.0-52.0) Mean Corpuscular Volume 100.8 fL (80.0-96.0) Mean Corpuscular Hemoglobin 34.3 pg (26.0-33.0) Mean Corpuscular Hemoglobin Concent 34.0 g/dL (32.0-36.0) Red Cell Distribution Width 14.8 % (11.5-14.5) Platelet Count 168 K/uL (150-450) Mean Platelet Volume 7.3 fL (7.2-11.1) Neutrophils (%) (Auto) 85.1 % (39.4-72.5) Lymphocytes (%) (Auto) 6.4 % (17.6-49.6) Monocytes (%) (Auto) 6.9 % (4.1-12.4) Eosinophils (%) (Auto) 0.7 % (0.4-6.7) Basophils (%) (Auto) 0.9 % (0.3-1.4) Nucleated RBC Relative Count (auto) 0.0 /100WBC Neutrophils # (Auto) 4.3 K/uL (2.0-7.4) Lymphocytes # (Auto) 0.3 K/uL (1.3-3.6) Monocytes # (Auto) 0.4 K/uL (0.3-1.0) Eosinophils # (Auto) 0.0 K/uL (0.0-0.5) Basophils # (Auto) 0.0 K/uL (0.0-0.1) Nucleated RBC Absolute Count (auto) 0.00 K/uL Prothrombin Time 14.8 seconds (12.0-14.4) Prothromb Time International Ratio 1.16 Activated Partial Thromboplast Time 32 seconds (23-35) Total Bilirubin 0.9 mg/dl (0.2-1.3) Aspartate Amino Transf (AST/SGOT) 10 U/L (0-35) Alanine Aminotransferase (ALT/SGPT) 25 U/L (0-56) Alkaline Phosphatase 75 U/L (0-126) Troponin I 0.015 ng/ml B-Type Natriuretic Peptide 2240 pg/ml (0-100) Total Protein 6.7 g/dl (6.3-8.2) Albumin 3.8 g/dl (3.5-5.0) Coagulation Test 03/21/18 10:34 Prothrombin Time 14.8 seconds Prothromb Time International Ratio 1.16 Activated Partial Thromboplast Time 32 seconds EKG/Imaging EKG Interpretation 12 lead EKG: Normal sinus rhythm, rate 96, QTc 467, no ischemic changes. Rhythm: normal sinus rhythm [place]: normal QRS: normal ST segments: normal Monitor Interpretation: Normal Sinus Rhythm Imaging Location: [facility] Patient: Tanner Gill : 1940 Visit/Account:[id number] Date of Sevice: 03/21/2018 EXAMINATION: Chest radiographs 2 views HISTORY: Chest pain. COMPARISON: 01/28/2018. FINDINGS: PA and lateral views of the chest are submitted. Lines/tubes: Left-sided pacemaker with intact and well-positioned leads. Lungs/pleura: There is elevation the left hemidiaphragm. Patchy left basilar opacity and blunting of the costophrenic angle is unchanged. No focal consolidation on the right. Heart: Mild cardiac silhouette enlargement. Mediastinum: Atherosclerotic calcifications of the aorta. Bony structures/body wall: Midline sternotomy wires are aligned and intact. Bony structures are osteopenic with degenerative changes of the spine. IMPRESSION: 1. No radiographic evidence of acute cardiopulmonary disease. 2. Pleural-parenchymal scarring at the left lung base is unchanged. 3. Mild cardiac silhouette enlargement, unchanged. ED Course/Re-evaluation ED Course Patient is a 78-year-old male here with complaints of dizziness, weakness, difficulty taking deep breaths, history of CHF, diabetes, be hyperglycemic, volume overloaded with a BNP greater than 2000. Patient was also noted to be tachycardiac, hyperkalemic, hyponatremic at time of evaluation. Patient was given a 500 mL bolus of fluids for hydration however due to his history of heart failure recent fluid retention, decision was made to hold on 500 mL. Patient was also given meclizine and a DuoNeb for symptom management with only mild relief of symptoms. Due to sedation significant comorbidities and lab aberrancies and clinical condition, decision was made to admit to internal medicine under Dr. Hodan Orona for further evaluation and care. Patient was stable at time of admission. Decision to Disposition Date: Mar 21, 2018 Decision to Disposition Time: 14:15 Depart Departure Latest Vital Signs Vital Signs Date Time Temp Pulse Resp B/P (MAP) Pulse Ox O2 Delivery O2 Flow Rate FiO2 03/21/18 13:30 96 8 143/93 (110) 03/21/18 11:03 94 03/21/18 09:47 Room Air Impression: Primary Impression: Acute systolic CHF (congestive heart failure) Additional Impressions: CKD (chronic kidney disease) DM type 2 (diabetes mellitus, type 2) Edema of lower extremity Hyperkalemia Hyponatremia Condition: Improved Disposition: Admitted from ER Referrals: HODAN LIANG MD (PCP) Problem Qualifiers TERESA ALVAREZ DO Mar 21, 2018 09:24
[~2018-03-21 09:28] MED LIST changes: -GLIM2TAB43 PO
[2018-03-21] MEDS ORDERED: NS(*) 0.9% 500 ML BAG 500 ML IV ONE (09:38)
[2018-03-21] MEDS ORDERED: ALBUTEROL/IPRATROPIUM 3 ML NEB NEB ONE (09:40)
--- NOTE | 2018-03-21 10:41 | EKG ---
FACILITY: [facility] PATIENT NAME: YULISSA OLIVA : [id number] MR: [id number] V: [id number] EXAM DATE: ORDERING PHYSICIAN: TERESA ALVAREZ TECHNOLOGIST: Test Reason : SOB Blood Pressure : / mmHG Vent. Rate : 096 BPM Atrial Rate : 096 BPM P-R Int : 200 ms QRS Dur : 124 ms QT Int : 370 ms P-R-T Axes : 023 064 190 degrees QTc Int : 467 ms Normal sinus rhythm Nonspecific intraventricular conduction delay Nonspecific T wave abnormality Abnormal ECG When compared with ECG of 28-JAN-2018 16:28, MA interval has decreased Minimal criteria for Inferior infarct are no longer present Nonspecific T wave abnormality, worse in Inferior leads Confirmed by HODAN MIRZA ([id number]) on 03/21/2018 12:14:36 PM Referred By: Confirmed By:HODAN MIRZA
[2018-03-21 10:42] LABS: PLATELET COUNT, AUTOMATED 168 K/uL (150-450)
[2018-03-21 10:52] LABS: INR 1.16
[2018-03-21] MEDS ORDERED: MECLIZINE HCL 25 MG TAB PO ONE (12:10)
--- NOTE | 2018-03-21 12:23 | RADIOLOGY IMAGING REPORT ---
FACILITY: [facility] PATIENT NAME: Tanner Gill : 1940 MR: [id number] V: [id number] EXAM DATE: ORDERING PHYSICIAN: TERESA ALVAREZ TECHNOLOGIST: Location: [facility] Patient: Tanner Gill : 1940 Visit/Account:[id number] Date of Sevice: 03/21/2018 EXAMINATION: Chest radiographs 2 views HISTORY: Chest pain. COMPARISON: 01/28/2018. FINDINGS: PA and lateral views of the chest are submitted. Lines/tubes: Left-sided pacemaker with intact and well-positioned leads. Lungs/pleura: There is elevation the left hemidiaphragm. Patchy left basilar opacity and blunting of the costophrenic angle is unchanged. No focal consolidation on the right. Heart: Mild cardiac silhouette enlargement. Mediastinum: Atherosclerotic calcifications of the aorta. Bony structures/body wall: Midline sternotomy wires are aligned and intact. Bony structures are oste openic with degenerative changes of the spine. IMPRESSION: 1. No radiographic evidence of acute cardiopulmonary disease. 2. Pleural-parenchymal scarring at the left lung base is unchanged. 3. Mild cardiac silhouette enlargement, unchanged. Report Dictated By: Gayle Ronquillo MD at 03/21/2018 12:18 PM Report E-Signed By: Gayle Ronquillo MD at 03/21/2018 12:19 PM [id number]
[2018-03-21 14:04] VITALS: BP 128/97
--- NOTE | 2018-03-21 15:30 | History & Physical ---
History of Present Illness Chief Complaint Weakness History of Present Illness This patient presented to the emergency room complaining of vague symptoms of weakness, dizziness, and fatigue. He reports that he is preparing to move from [place] to [place] and that he lost his medications in the process. History Problems: (1) Chronic systolic heart failure Status: Chronic (2) Non-ST elevated myocardial infarction (non-STEMI) Status: Chronic (3) Hip fracture requiring operative repair Status: Chronic (4) CAD (coronary artery disease) Status: Chronic (5) CKD (chronic kidney disease) stage 3, GFR 30-59 ml/min Status: Chronic Home Meds Active Scripts Furosemide (FUROSEMIDE) 40 Mg Tablet, 1 TAB PO DAILY, #30 TAB 1 Refill Prov:MACY BALTAZAR MD 01/29/18 Cephalexin Monohydrate (CEPHALEXIN) 250 Mg Cap, 250 MG PO QID for 10 Days, #40 CAP 0 Refills Prov:MACY BALTAZAR MD 01/29/18 Nitroglycerin (NITROGLYCERIN) 0.4 Mg Tab.subl, 0.4 MG SL Q5MIN PRN for CHEST PAIN, #1 BOTTLE Prov:SYLVIA BALTAZAR MD 08/01/16 Reported Medications Carvedilol (COREG) 25 Mg Tablet, 25 MG PO BID, #10 TAB 08/01/16 Losartan Potassium (LOSARTAN POTASSIUM) 25 Mg Tablet, 25 MG PO QDAY 09/25/15 Glimepiride (Amaryl) 2 Mg Tablet, 6 MG PO QAM 07/15/11 Multivitamins (Multivitamin) 1 Tab Tablet, 1 TAB PO DAILY 07/15/11 Atorvastatin Calcium (Lipitor) 20 Mg Tablet, 40 MG PO QHS, 0 Refills 05/29/08 Aspirin (Aspirin Ec) 81 Mg Tablet.dr, 81 MG PO QDAY, 0 Refills 05/29/08 Allergies: Coded Allergies: No Known Drug Allergies (Unverified , 01/28/18) Patient History: FH: colon cancer BROTHER OR SISTER, Age:71 FH: depression FATHER, , Age:74 FH: diabetes mellitus BROTHER OR SISTER, Age:71 FH: myocardial infarction MOTHER (Bierke), , Age:68 FH: stomach cancer BROTHER OR SISTER, Age:71 Hx Smoking: No Smoking Status: Never Smoker Exposure to Second Hand Smoke?: No Caffeine Intake: Coffee Caffeine/Cups Per Day: 4 CUPS/DAY Hx Alcohol Use: No Hx Substance Use Disorder: No Social Drug Use: Never Review of Systems All Systems Reviewed/Normal: Yes, Except as Noted Neurological: Weakness, Dizziness Exam Vital Signs Vital Signs Date Time Temp Pulse Resp B/P (MAP) Pulse Ox O2 Delivery O2 Flow Rate FiO2 03/21/18 14:04 97.8 96 16 128/97 (107) 94 Room Air Neuro: No Gross deficits Eyes: PERRLA Cardiovascular: No JVD, Other (Systolic murmur at apex.) GI: Abd Soft and Non-Tender Extremities: No Edema Integumentary: No Cyanosis Medical Decision Making Data Points Result Diagram: 03/21/18 1034 03/21/18 1034 Assessment and Plan Problems: (1) Hyperkalemia Status: Chronic Assessment & Plan: He did have an elevated potassium on admission. He was reportedly on losartan as an outpatient, but it is unclear when he last took the medication. He was treated with albuterol in the emergency department. We will repeat a chemistry panel and intervene as needed. (2) Acute systolic CHF (congestive heart failure) Assessment & Plan: His last echocardiogram (01/2018) showed an ejection fraction of 30%. He has been on and off diuretics over the last several months. His current weight is actually down significantly from his last admission. We will restart his carvedilol and hold off on restarting his diuretics. (3) Pulmonary hypertension, moderate to severe Assessment & Plan: His last echocardiogram did reveal right ventricular pressures of 75mmHg. (4) Aortic stenosis, severe Assessment & Plan: This was also noted on his last echocardiogram. (5) CAD (coronary artery disease) Status: Chronic Assessment & Plan: He is on chronic treatment with aspirin. (6) CKD (chronic kidney disease) stage 3, GFR 30-59 ml/min Status: Chronic Copies to: SIMI SANTANA MD; HODAN LIANG MD ; Venous Thromboembolism Antithrombotics Is Pt On Any Antithrombotics?: No Exam Sepsis Risk: No Definite Risk HODAN MIRZA DO Mar 21, 2018 15:30
[2018-03-21] MEDS ORDERED: NS(*) 0.9% 1000 ML BAG 1,000 ML IV PRN (17:55)
[2018-03-21 19:07] VITALS: BP 141/96
[2018-03-21] MEDS: CARVEDILOL 25 MG TABLET PO SCH (21:40)
[2018-03-21] MEDS: INSULIN HUM REG 100 UN/ML 3 ML VIAL SC PRN (21:43)
[2018-03-21 23:12] VITALS: BP 97/63
[2018-03-22 03:43] VITALS: BP 112/79
[2018-03-22 06:19] LABS: PLATELET COUNT, AUTOMATED 156 K/uL (150-450)
[2018-03-22 06:55] VITALS: BP 112/78
[2018-03-22 07:38] VITALS: BP 117/83
[2018-03-22] MEDS: CARVEDILOL 25 MG TABLET PO SCH ×2 (08:36→21:37)
[2018-03-22] MEDS: ASPIRIN 81 MG ENTERIC COATED PO SCH (08:36)
[2018-03-22 11:02] VITALS: Ht 188 cm; Wt 83.5 kg
--- NOTE | 2018-03-22 12:23 | Hospitalist Progress Note ---
Subjective Progress Notes Subjective He reports that the SOB has improved, but he hasn't tried to walk much. Physical Exam Vital Signs Date Time Temp Pulse Resp B/P (MAP) Pulse Ox O2 Delivery O2 Flow Rate FiO2 03/22/18 07:38 97.6 69 20 117/83 (94) 94 Room Air Intake and Output 03/22/18 06:59 Intake Total 1140 ml Output Total 300 ml Balance 840 ml Intake Oral 640 ml IV Total 500 ml Output Urine Total 300 ml General Appearance: Alert, Awake, No Acute Distress Cardiovascular: Other (Systolic murmur heard on the LSB at 4/5 intercostal space. No S1 or S2) Respiratory: Clear to Auscultation Extremities: No Edema Result Diagram: 03/22/1853103/22/18 05 Monitor Interpretation: Normal Sinus Rhythm Assessment and Plan Problems: (1) Acute systolic CHF (congestive heart failure) Assessment & Plan: He presented with SOB. BNP is elevated, but he doesn't appear to be in an exacerbation. His last echocardiogram (01/2018) showed an ejection fraction of 30%. He has been on and off diuretics over the last several months. His current weight is actually down significantly from his last admission. Carvedilol restarted and holding off on restarting his diuretics. (2) Aortic stenosis, severe Assessment & Plan: This was also noted on his last echocardiogram. I will try to discuss with Cardiology about further evaluation. (3) Hyperkalemia Status: Chronic Assessment & Plan: He did have an elevated potassium on admission. He is on losartan as an outpatient, but it is unclear when he last took the medication. It is improving with hydration and holding losartan. Will follow. (4) Pulmonary hypertension, moderate to severe Assessment & Plan: His last echocardiogram did reveal right ventricular pressures of 75mmHg. (5) CAD (coronary artery disease) Status: Chronic Assessment & Plan: He is on chronic treatment with aspirin. (6) CKD (chronic kidney disease) stage 3, GFR 30-59 ml/min Status: Chronic Exam Sepsis Risk: No Definite Risk LISA JAMESON MD Mar 22, 2018 12:23
[2018-03-22] MEDS: INSULIN HUM REG 100 UN/ML 3 ML VIAL SC PRN ×3 (13:00→21:38)
[2018-03-22] MEDS ORDERED: INFLUENZA VIRUS VAC 0.5ML SYR IM ONLY ONE (15:20)
[2018-03-22 16:00] VITALS: BP 111/77
[2018-03-22 19:44] VITALS: BP 115/79
[2018-03-22 23:36] VITALS: BP 114/79
[2018-03-23 04:40] VITALS: BP 119/85
[2018-03-23 05:51] LABS: PLATELET COUNT, AUTOMATED 157 K/uL (150-450)
[2018-03-23 09:00] VITALS: BP 134/93
[2018-03-23] MEDS: ASPIRIN 81 MG ENTERIC COATED PO SCH (09:04)
[2018-03-23] MEDS: CARVEDILOL 25 MG TABLET PO SCH ×2 (09:04→21:17)
[2018-03-23] MEDS: INSULIN HUM REG 100 UN/ML 3 ML VIAL SC PRN ×3 (11:34→21:18)
--- NOTE | 2018-03-23 12:01 | Hospitalist Progress Note ---
Subjective Progress Notes Subjective He reports doing "OK". He did not, however, eat or drink much through yesterday. He is ambulating fairly well. Physical Exam Vital Signs Date Time Temp Pulse Resp B/P (MAP) Pulse Ox O2 Delivery O2 Flow Rate FiO2 03/23/18 09:03 96 Room Air 03/23/18 09:00 73 20 134/93 (107) 03/23/18 04:40 96.8 Intake and Output 03/23/18 06:59 Intake Total 1151 ml Output Total 350 ml Balance 801 ml Intake Oral 360 ml IV Total 791 ml Output Urine Total 350 ml # Voids 1 General Appearance: Alert, Awake Cardiovascular: Other (Regular with systolic murmur) Respiratory: Other (decreased breath sounds at bases/no rales or wheezes noted) Extremities: Warm, Perfused Result Diagram: 03/23/1851303/23/18513 Monitor Interpretation: Normal Sinus Rhythm Assessment and Plan Problems: (1) Acute systolic CHF (congestive heart failure) Assessment & Plan: He presented with SOB. BNP was elevated, but he doesn't appear to be in an acute exacerbation. His last echocardiogram (01/2018) showed an ejection fraction of 30%. He has been on and off diuretics over the last several months. His current weight is actually down significantly from his last admission. Carvedilol restarted and holding off on restarting his diuretics as it appears he may have been intravascular depleted. (2) Aortic stenosis, severe Assessment & Plan: This was also noted on his last echocardiogram. He wishes to discuss with Cardiology (Dr. Efrain Champagne) about further evaluation. (3) Hyperkalemia Status: Chronic Assessment & Plan: He did have an elevated potassium on admission. He was on losartan as an outpatient, but it is unclear when he last took the medication. It was improving with hydration and holding losartan, but has increased again today. Will have him increase fluids this AM and recheck later today.. (4) Pulmonary hypertension, moderate to severe Assessment & Plan: His last echocardiogram did reveal right ventricular pressures of 75mmHg. (5) CAD (coronary artery disease) Status: Chronic Assessment & Plan: He is on chronic treatment with aspirin. (6) CKD (chronic kidney disease) stage 3, GFR 30-59 ml/min Status: Chronic Assessment & Plan: His creatinine improved with some gentle IV fluids, but has risen slightly again when fluids were stopped. Exam Sepsis Risk: No Definite Risk MACY BALTAZAR MD Mar 23, 2018 12:01
[2018-03-23] MEDS ORDERED: CALCIUM GLUC 100 MG/ML 50 ML SDV IVP ONE (12:50)
[2018-03-23] MEDS ORDERED: DEXTROSE 50% 50 ML SYR IVP ONE (12:50)
[2018-03-23] MEDS ORDERED: NS(*) 0.9% 1000 ML BAG 1,000 ML IV PRN (12:50)
[2018-03-23] MEDS ORDERED: INSULIN HUM REG 100 UN/ML 3 ML VIAL IV ONE (12:50)
[2018-03-23] MEDS ORDERED: CALCIUM GLUC 10% 100 MG/ML VL IVP ONE (13:05)
[2018-03-23] MEDS ORDERED: CALCIUM GLUC 1 GM/NS 100 ML IVPB ONE (13:20)
[2018-03-23 15:31] VITALS: BP 108/80
[2018-03-23 19:03] VITALS: BP 117/78
[2018-03-23 23:12] VITALS: BP 117/84
[2018-03-24] VITALS (7 sets, daily range): BP systolic 98–115; BP diastolic 68–90
[2018-03-24 06:04] LABS: PLATELET COUNT, AUTOMATED 147 K/uL (150-450)
[2018-03-24] MEDS ORDERED: FUROSEMIDE 20 MG TAB PO SCH (09:00)
[2018-03-24] MEDS: ASPIRIN 81 MG ENTERIC COATED PO SCH (09:33)
[2018-03-24] MEDS: CARVEDILOL 25 MG TABLET PO SCH ×2 (09:33→20:56)
[2018-03-24] MEDS ORDERED: INFLUENZA VIRUS VAC 0.5ML SYR IM ONLY ONE (10:30)
[2018-03-24] MEDS: INSULIN HUM REG 100 UN/ML 3 ML VIAL SC PRN ×3 (12:15→20:56)
--- NOTE | 2018-03-24 13:28 | Medical Nutrition Therapy ---
Nutrition Anthropometrics Height (Inches): 74.00 Height (Calculated Centimeters: 187.352636 Weight (Pounds): 181 Weight (Calculated Kilograms): 82.270 Hx Weight Loss: No Yaron Nutrition Score: Adequate Yaron Nutrition Risk Score: 20 Dietary Referral Nutrition Risk Factors: Nutrition Risk Comment: DIABETIC Nutritional Diagnosis Nutritional Risk Acuity 2: CHF w/Complication, Chronic Renal Failure Nutritional Risk Acuity 3: Fair Appetite, Weight Loss Nutritional Risk Acuity 4: Good Appetite Past Medical History: Hx of CKD, CHF, CAD, and T2DM. Nutritional Acuity: 2-Moderate Nutrition Diagnosis: Increased Nutrient Needs Nutrition Etiology: Physiological Causes Nutrition Problem/Etiology/Sym: AEB weight loss and Alb 3.2 Energy Requirement: 2000 (MSJ * 1.2) Protein Requirement: 82 (1g/kg) Fluid Requirement: 2000 (1ml/kcal) Diet Type: CHF Diet (pt on Diabetic diet, recommend addition of CHF diet), Diabetic Nutrition Intervention: Cont diet as ordered, Encourage intake Nutrition Monitoring & Eval Nutrition Goals: Eat 75-100% Meal, Drink > 1500 cc/day Nutrition Follow-Up: Good Intake RD Patient Assessment Time: [address] Assessment Type: RD Assessment Patient Nutrition Acuity: 2-Moderate Follow Up Date: Mar 27, 2018 Nutritional Comment: 03/23 Pt admitted for hyperkalemia with CHF. K+ has declined but cont elevated at 5.7. Pt has dx T2DM with BG elevated at 204 but steadily declining. Pt has dx CKD-3 and CHF. BNP 1680. Na low at 134. Alb 3.8 Pt on diabetic diet and has ate 100% of meals on 03/23. Recommend add CHF diet to diabetic diet. ANYA ANDINO Mar 23, 2018 09:03
--- NOTE | 2018-03-24 16:40 | Hospitalist Progress Note ---
Subjective Progress Notes Subjective 78M admitted for weakness. EFRAÍN overnight, ambulating halls today. Patient Complains of: Neurological: No: Weakness, Dizziness Physical Exam Vital Signs Date Time Temp Pulse Resp B/P (MAP) Pulse Ox O2 Delivery O2 Flow Rate FiO2 03/24/18 14:27 96.4 64 24 103/78 (86) 95 Room Air Intake and Output 03/24/18 06:59 Intake Total 620 ml Output Total 200 ml Balance 420 ml Intake Oral 620 ml Output Urine Total 200 ml # Bowel Movements 1 General Appearance: Alert, Awake, No Acute Distress, Afebrile Neuro: No Gross deficits Eyes: PERRLA ENT: Normal Cardiovascular: Normal Rhythm & Peripheral Pulses Respiratory: No Respiratory Distress GI: Soft and Non-Tender Extremities: Soft and Non Tender, Warm, Pulses, Perfused, Edema (very mild pre tibial) Result Diagram: 03/24/18 0543 03/24/18 0543 Monitor Interpretation: Normal Sinus Rhythm Assessment and Plan Problems: (1) Acute systolic CHF (congestive heart failure) Assessment & Plan: He presented with SOB. BNP was elevated, but he doesn't appear to be in an acute exacerbation. His last echocardiogram (01/2018) showed an ejection fraction of 30%. He has been on and off diuretics over the last several months. His current weight is actually down significantly from his last admission. Carvedilol restarted and holding off on restarting his diuretics as it appears he may have been intravascular depleted. Symptopms improved. Dr Aguayo pier master assistant ok with d/c on decreased diuretic and follow up at scheduled appt 03.31.2018 (2) Aortic stenosis, severe Assessment & Plan: This was also noted on his last echocardiogram. He wishes to discuss with Cardiology (Dr. Efrain Champagne) about further evaluation. (3) Hyperkalemia Status: Chronic Assessment & Plan: He did have an elevated potassium on admission. He was on losartan as an outpatient, but it is unclear when he last took the medication. It was improving with hydration and holding losartan, but increased again. Improved (4) Pulmonary hypertension, moderate to severe Assessment & Plan: His last echocardiogram did reveal right ventricular pressures of 72mmHg. (5) CAD (coronary artery disease) Status: Chronic Assessment & Plan: He is on chronic treatment with aspirin. (6) CKD (chronic kidney disease) stage 3, GFR 30-59 ml/min Status: Chronic Assessment & Plan: His creatinine improved with some gentle IV fluids, it is currently at his baseline approx 1.8-1.9 Exam Sepsis Risk: No Definite Risk ESQUEDA BARRINGTON SHORT DO Mar 24, 2018 16:40
--- NOTE | 2018-03-24 19:54 | EKG ---
FACILITY: [facility] PATIENT NAME: YULISSA OLIVA : [id number] MR: [id number] V: [id number] EXAM DATE: ORDERING PHYSICIAN: BARRINGTON SHORT TECHNOLOGIST: MARIO Test Reason : IRR HB Blood Pressure : / mmHG Vent. Rate : 081 BPM Atrial Rate : 081 BPM P-R Int : 288 ms QRS Dur : 116 ms QT Int : 404 ms P-R-T Axes : 047 020 113 degrees QTc Int : 469 ms Sinus rhythm with 1st degree AV block Low voltage QRS Incomplete left bundle branch block Nonspecific T wave abnormality Prolonged QT Abnormal ECG When compared with ECG of 21-MAR-2018 10:52, DC interval has increased Nonspecific T wave abnormality, worse in Lateral leads Confirmed by Barrington Alfredo ([id number]) on 03/24/2018 8:01:32 PM Referred By: Confirmed By:Barrington Short
[2018-03-25] VITALS (7 sets, daily range): BP systolic 106–131; BP diastolic 71–90
[2018-03-25] MEDS ORDERED: FUROSEMIDE 20 MG TAB PO SCH (09:00)
[2018-03-25] MEDS: ASPIRIN 81 MG ENTERIC COATED PO SCH (09:44)
[2018-03-25] MEDS: CARVEDILOL 25 MG TABLET PO SCH ×2 (09:44→20:53)
--- NOTE | 2018-03-25 09:59 | Hospitalist Progress Note ---
Subjective Progress Notes Subjective This patient was admitted for hyperkalemia. He had no acute events overnight. Patient Complains of: Cardiovascular: No: Chest Pain Respiratory: No: Shortness of Breath Physical Exam Vital Signs Date Time Temp Pulse Resp B/P (MAP) Pulse Ox O2 Delivery O2 Flow Rate FiO2 03/25/18 09:40 71 123/76 (92) 03/25/18 07:44 97.5 12 96 Room Air Intake and Output 03/25/18 07:00 Intake Total 2226 ml Output Total 200 ml Balance 2026 ml Intake Oral 1326 ml IV Total 900 ml Output Urine Total 200 ml # Voids 2 Cardiovascular: Regular Rate and Rhythm Respiratory: Clear to Auscultation Result Diagram: 03/24/18 0543 03/25/18 0534 Monitor Interpretation: Normal Sinus Rhythm Assessment and Plan Problems: (1) Acute systolic CHF (congestive heart failure) Assessment & Plan: He presented with SOB. BNP was elevated, but he didn't appear to be in an acute exacerbation. His last echocardiogram (01/2018) showed an ejection fraction of 30%. He has been on and off diuretics over the last several months. His current weight is actually down significantly from his last admission. Carvedilol has been restarted and his losartan has been discontinued secondary to the hyperkalemia. He also appears to be maintaining his volume status without the diuretics. (2) Aortic stenosis, severe Assessment & Plan: This was also noted on his last echocardiogram. He will follow up with Dr. Aguayo regarding this. He will likely be oversensitive to excessive diuresis because of this. (3) Hyperkalemia Status: Chronic Assessment & Plan: He did have an elevated potassium on admission. He was on losartan as an outpatient, but it is unclear when he last took the medication. It remains slightly elevated, but overall improved. Losartan has been discontinued as above. (4) Pulmonary hypertension, moderate to severe Assessment & Plan: His last echocardiogram did reveal right ventricular pres sures of 72mmHg. (5) CAD (coronary artery disease) Status: Chronic Assessment & Plan: He is on chronic treatment with aspirin. (6) CKD (chronic kidney disease) stage 3, GFR 30-59 ml/min Status: Chronic Assessment & Plan: His creatinine improved with some gentle IV fluids, it is currently at his baseline approx 1.8-1.9 (7) DM type 2 (diabetes mellitus, type 2) Status: Chronic Assessment & Plan: He was reportedly on Amaryl as an outpatient, but has not been receiving this here. He has had persistent hyperglycemia despite sliding scale level #2 coverage. We will restart his Amaryl at a lower dose, secondary to renal function, and follow his sugars through today. He will likely be ready for discharge if his sugars remain stable. Exam Sepsis Risk: No Definite Risk HODAN MIRZA DO Mar 25, 2018 09:59
[2018-03-25] MEDS: GLIMEPIRIDE 2 MG TAB PO SCH (10:31)
[2018-03-25] MEDS: INSULIN HUM REG 100 UN/ML 3 ML VIAL SC PRN ×2 (11:27→20:54)
[2018-03-26] VITALS (7 sets, daily range): BP systolic 113–129; BP diastolic 73–88
[2018-03-26] MEDS: INSULIN HUM REG 100 UN/ML 3 ML VIAL SC PRN ×4 (07:59→21:21)
[2018-03-26] MEDS: ASPIRIN 81 MG ENTERIC COATED PO SCH (09:30)
[2018-03-26] MEDS: GLIMEPIRIDE 2 MG TAB PO SCH (09:30)
[2018-03-26] MEDS: CARVEDILOL 25 MG TABLET PO SCH ×3 (09:31→21:21)
--- NOTE | 2018-03-26 10:43 | Hospitalist Progress Note ---
Subjective Progress Notes Subjective He is reporting some orthostasis. No dyspnea at rest. Physical Exam Vital Signs Date Time Temp Pulse Resp B/P (MAP) Pulse Ox O2 Delivery O2 Flow Rate FiO2 03/26/18 09:26 59 117/73 (88) 03/26/18 07:52 97.4 14 97 Room Air Intake and Output 03/26/18 06:59 Intake Total 2040 ml Output Total 175 ml Balance 1865 ml Intake Oral 2040 ml Output Urine Total 175 ml # Voids 5 General Appearance: Alert, Awake Cardiovascular: Other (Regular distant tones systolic murmur) Respiratory: Other (fairly clear) Chest: Other (Pacemaker left upper chest) GI: Soft and Non-Tender Extremities: Warm, Perfused Result Diagram: 03/24/18 0543 03/26/18 0539 Monitor Interpretation: Other (sinus rhythm with occasional paced rhythm) Assessment and Plan Problems: (1) Acute systolic CHF (congestive heart failure) Assessment & Plan: He presented with SOB. BNP was elevated, but he didn't appear to be in an acute exacerbation. His last echocardiogram (01/2018) showed an ejection fraction of 30%. He has been on and off diuretics over the last several months. His current weight is actually down significantly from his last admission. Carvedilol has been restarted and his losartan has been discontinued secondary to the hyperkalemia. He also appears to be maintaining his volume status without the diuretics. (2) Aortic stenosis, severe Assessment & Plan: This was also noted on his last echocardiogram. He will follow up with Dr. Dion Champagne regarding this. He seems to be quite sensitive to diuresis because of the . He does have some orthostasis, so will continue to hold his diuretic and monitor. (3) Hyperkalemia Status: Chronic Assessment & Plan: He did have an elevated potassium on admission. He has had hyperkalemia mild-moderate for the past several years. He was on losartan as an outpatient, but it has been discontinued as above. His K+ is in his "usual" range and may be related to his renal dysfunction as well. Watch closely. (4) Pulmonary hypertension, moderate to severe Assessment & Plan: His last echocardiogram did reveal right ventricular pressures of 72mmHg. (5) CAD (coronary artery disease) Status: Chronic Assessment & Plan: He is on chronic treatment with aspirin. (6) CKD (chronic kidney disease) stage 3, GFR 30-59 ml/min Status: Chronic Assessment & Plan: His creatinine improved with some gentle IV fluids. He is currently (2.1) slightly above his baseline of approximately 1.8-1.9. (7) DM type 2 (diabetes mellitus, type 2) Status: Chronic Assessment & Plan: He was on Amaryl 6mg daily as an outpatient. He has had persistent hyperglycemia despite sliding scale level #2 coverage. We did restart his Amaryl at a lower dose (2mg daily), secondary to renal function. Exam Sepsis Risk: No Definite Risk MACY BALTAZAR MD Mar 26, 2018 10:43
[2018-03-26] MEDS ORDERED: FUROSEMIDE 20 MG/2 ML VIAL IVP ONE (11:35)
[2018-03-26] MEDS: CEFEPIME HCL 2 GM VIAL IVP SCH (12:03)
--- NOTE | 2018-03-26 12:09 | RADIOLOGY IMAGING REPORT ---
FACILITY: [facility] PATIENT NAME: Tanner Gill : 1940 MR: [id number] V: [id number] EXAM DATE: ORDERING PHYSICIAN: MACY BALTAZAR TECHNOLOGIST: [place] [facility] [place] : 1940 Visit/Account:[id number] Date of Sevice: 03/26/2018 CHEST SINGLE AP Additional pertinent History: SOB COMPARISON STUDIES: 03/21/2018 FINDINGS: Support lines and catheters: Left-sided chest pacemaker with well-positioned leads. Lungs and Pleura: Persistent parenchymal opacity/scarring in the left lower lung. Increasing opacity in the right lower lung compatible with effusion which is now to the right hemidia phragm. Adjacent increasing areas of patchy interstitial atelectatic lung change in the right right lower lung above the effusion. Heart and vasculature: Negative. Kelsey and Mediastinum: Negative. Bones and Chest wall: Negative. Upper Abdomen: Negative. IMPRESSION: 1. Persistent consolidation/scarring change at the left lung base. 2. Increasing effusion in the right lower lung with developing atelectasis/interstitial infiltrative change in the right lower lung. Developing pneumonic infiltrate suspected. Recommend clinical juan j elation and follow-up. Report Dictated By: Gaston Oswald MD at 03/26/2018 11:59 AM Report E-Signed By: Gaston Oswald MD at 03/26/2018 12:04 PM WSN:[email or web address]
[2018-03-27 03:36] VITALS: BP 112/73
[2018-03-27 06:26] LABS: PLATELET COUNT, AUTOMATED 145 K/uL (150-450)
[2018-03-27] MEDS ORDERED: DEXTROSE 50% 50 ML SYR IVP ONE ×2 (06:35→10:40)
[2018-03-27] MEDS ORDERED: INSULIN HUM REG 100 UN/ML 3 ML VIAL IV ONE (06:35)
[2018-03-27] MEDS ORDERED: CALCIUM GLUC 100 MG/ML 50 ML SDV IVP ONE (06:35)
[2018-03-27 07:35] VITALS: BP 115/78
[2018-03-27] MEDS: INSULIN HUM REG 100 UN/ML 3 ML VIAL SC PRN ×3 (08:28→21:00)
[2018-03-27] MEDS ORDERED: NS 0.9% IVPB ONE ×2 (08:30→10:40)
[2018-03-27] MEDS ORDERED: CALCIUM GLUC IVPB ONE ×2 (08:30→10:40)
[2018-03-27] MEDS ORDERED: [UNRECOGNIZED DRUG - OTHER] IVPB ONE ×2 (08:30→10:40)
[2018-03-27] MEDS ORDERED: NS(*) 0.9% 250 ML BAG 250 ML ONE (10:48)
[2018-03-27] MEDS: GLIMEPIRIDE 2 MG TAB PO SCH (10:49)
[2018-03-27] MEDS: ASPIRIN 81 MG ENTERIC COATED PO SCH (10:50)
[2018-03-27] MEDS: CARVEDILOL 25 MG TABLET PO SCH ×2 (10:50→21:00)
[2018-03-27] MEDS: CEFEPIME HCL 2 GM VIAL IVP SCH (12:19)
[2018-03-27 12:23] VITALS: BP 132/88
--- NOTE | 2018-03-27 12:29 | Medical Nutrition Therapy ---
Nutrition Anthropometrics Height (Inches): 74.00 Height (Calculated Centimeters: 187.097492 Weight (Pounds): 183 Weight (Calculated Kilograms): 83.007 Hx Weight Loss: No Yaron Nutrition Score: Adequate Yaron Nutrition Risk Score: 18 Dietary Referral Nutrition Risk Factors: Nutrition Risk Comment: DIABETIC Physical Findings Physical Appearance: WNR Skin Appearance Skin Appearance: Edema Edema Location Modifier: Both Edema Location: Type of Edema: Degree of Edema: Gastrointestinal Symptoms GI Symtoms: Tube Present: Bowel Sounds: Recent Bowel Pattern: Stool Characteristics: Nutritional Diagnosis Nutritional Risk Acuity 2: CHF w/Complication, Chronic Renal Failure Nutritional Risk Acuity 3: Fair Appetite, Weight Loss Nutritional Risk Acuity 4: Good Appetite Past Medical History: Hx of CKD, CHF, CAD, and T2DM. Nutritional Acuity: 2-Moderate Nutrition Diagnosis: Increased Nutrient Needs Nutrition Etiology: Physiological Causes Nutrition Problem/Etiology/Sym: AEB weight loss and Alb 3.2 Energy Requirement: 2000 (MSJ * 1.2) Protein Requirement: 82 (1g/kg) Fluid Requirement: 2000 (1ml/kcal) Diet Type: CHF Diet (pt on Diabetic diet, recommend addition of CHF diet), Diabetic Nutrition Intervention: Cont diet as ordered, Encourage intake Nutrition Monitoring & Eval Nutrition Goals: Eat 75-100% Meal RD Patient Assessment Time: [address] Assessment Type: RD Assessment Patient Nutrition Acuity: 2-Moderate Follow Up Date: Mar 30, 2018 Nutritional Comment: 03/23 Pt admitted for hyperkalemia with CHF. K+ has declined but cont elevated at 5.7. Pt has dx T2DM with BG elevated at 204 but steadily declining. Pt has dx CKD-3 and CHF. BNP 1680. Na low at 134. Alb 3.8 Pt on diabetic diet and has ate 100% of meals on 03/23. Recommend add CHF diet to diabetic diet. TB 03/27 Pt continues with CHF-diabetes diet with good intake at 75-100% consumption of meals. Alb 3.2, Glu 207. Follow labs, encourage intake, etc. -MAHSA CAM Mar 27, 2018 12:29
--- NOTE | 2018-03-27 13:37 | Hospitalist Progress Note ---
Subjective Progress Notes Subjective The patient states he feels "washed out" today. Physical Exam Vital Signs Date Time Temp Pulse Resp B/P (MAP) Pulse Ox O2 Delivery O2 Flow Rate FiO2 03/27/18 12:23 96.7 74 20 132/88 (103) 95 Room Air Intake and Output 03/27/18 07:00 Intake Total 1696 ml Balance 1696 ml Intake Oral 1696 ml # Voids 8 General Appearance: Alert, Awake, No Acute Distress Eyes: PERRLA Cardiovascular: Regular Rate and Rhythm Respiratory: Other GI: Soft and Non-Tender Extremities: Warm, Perfused Psych: Appropriate Mood & Affect Result Diagram: 03/27/1851703/27/18517 Monitor Interpretation: Other (sinus rhythm with occasional paced rhythm) Assessment and Plan Problems: (1) Pneumonia Status: Acute Assessment & Plan: The patient noted increased weakness and generally not feeling well. CXR showed new changes in RLL read by radiologist as "developing pneumonic infiltrate suspected". Cefepime started on 03/26. He is getting 2 g IV q 24 hours based on his renal function. (2) Acute systolic CHF (congestive heart failure) Assessment & Plan: He presented with SOB. BNP was elevated, but he didn't appear to be in an acute exacerbation. His last echocardiogram (01/2018) showed an ejection fraction of 30%. He has been on and off diuretics over the last several months. His current weight is actually down significantly from his last admission. Carvedilol has been restarted and his losartan has been discontinued secondary to the hyperkalemia. He also appears to be maintaining his volume status without the diuretics. (3) Aortic stenosis, severe Assessment & Plan: This was also noted on his last echocardiogram. He will follow up with Dr. Dion Champagne regarding this. He seems to be quite sensitive to diuresis because of the . He does have some orthostasis, so will continue to hold his diuretic and monitor. (4) Hyperkalemia Status: Chronic Assessment & Plan: He did have an elevated potassium on admission. He has had hyperkalemia mild-moderate for the past several years. He was on losartan as an outpatient, but it has been discontinued as above. His K+ did increased today so treatment with D50, insulin and calcium was ordered per Dr. Candice Baltazar early this am. Will recheck a BMP this afternoon. (5) Pulmonary hypertension, moderate to severe Assessment & Plan: His last echocardiogram did reveal right ventricular pressures of 72mmHg. (6) CAD (coronary artery disease) Status: Chronic Assessment & Plan: He is on chronic treatment with aspirin. (7) CKD (chronic kidney disease) stage 3, GFR 30-59 ml/min Status: Chronic Assessment & Plan: His creatinine improved with some gentle IV fluids. He is currently (2.1) slightly above his baseline of approximately 1.8-1.9. (8) DM type 2 (diabetes mellitus, type 2) Status: Chronic Assessment & Plan: He was on Amaryl 6mg daily as an outpatient. He has had persistent hyperglycemia despite sliding scale level #2 coverage. We did restart his Amaryl at a lower dose (2mg daily), secondary to renal function. BS still constently over 200. Will add Lantus 10u at HS. Continue to monitor glucoses. Time Spent on Plan of Care: < 30 min Exam Sepsis Risk: No Definite Risk SYLVIA BALTAZAR MD Mar 27, 2018 13:37
[2018-03-27 15:47] VITALS: BP 129/88
[2018-03-27 19:00] VITALS: BP 126/81
[2018-03-27] MEDS: INSULIN GLARGINE 100 U/ML 3 ML PEN SUBQ SCH (21:00)
[2018-03-28] VITALS (7 sets, daily range): BP systolic 114–132; BP diastolic 72–94
[2018-03-28 06:10] LABS: PLATELET COUNT, AUTOMATED 158 K/uL (150-450)
[2018-03-28] MEDS: CARVEDILOL 25 MG TABLET PO SCH ×2 (07:43→20:37)
[2018-03-28] MEDS: GLIMEPIRIDE 2 MG TAB PO SCH (07:43)
[2018-03-28] MEDS: ASPIRIN 81 MG ENTERIC COATED PO SCH (07:43)
[2018-03-28] MEDS: INSULIN HUM REG 100 UN/ML 3 ML VIAL SC PRN ×3 (07:44→20:41)
[2018-03-28] MEDS ORDERED: LEVOFLOXACIN 750 MG TAB PO SCH (10:30)
--- NOTE | 2018-03-28 11:29 | Antimicrobial Stewardship ---
Antimicrobial Time Out Antimicrobial Stewardship MD Service: Hospitalist Indications: CAP Antimicrobial Used Cefepime 2 gm IVP q24 hours for 2 doses, 03/26 and 03/27. Levaquin 750 mg po q48 hours started on 03/28. Culture Results: N/A Eligible for PO Conversion Eligable for PO Conversion: Yes Reviewed with Provider Reviewed w/ Provider on Rounds: No SYLVIA WING Mar 28, 2018 11:29
--- NOTE | 2018-03-28 12:17 | Hospitalist Progress Note ---
Subjective Progress Notes Subjective 78M admitted for weakness. EFRAÍN overnight, was started on cefepime 2 days ago for presumed pneumonia. No direct PO substitute. Patient Complains of: Respiratory: No: Cough Gastrointestinal: No Nausea, No Vomiting Physical Exam Vital Signs Date Time Temp Pulse Resp B/P (MAP) Pulse Ox O2 Delivery O2 Flow Rate FiO2 03/28/18 11:37 64 03/28/18 11:31 97.4 20 120/81 (94) 98 Room Air Intake and Output 03/28/18 07:00 Intake Total 1282 ml Balance 1282 ml Intake Oral 1216 ml IV Total 66 ml # Voids 5 # Bowel Movements 1 General Appearance: Alert, Awake, No Acute Distress Neuro: No Gross deficits Eyes: PERRLA ENT: Normal Neck: No Masses Cardiovascular: Normal Rhythm & Peripheral Pulses Respiratory: No Respiratory Distress GI: Soft and Non-Tender Musculoskeletal: No Weakness/Pain Extremities: Soft and Non Tender, Warm, Pulses, Perfused; No Edema Result Diagram: 03/28/1852403/28/18 05 Monitor Interpretation: Other (sinus rhythm with occasional paced rhythm) Assessment and Plan Problems: (1) Pneumonia Status: Acute Assessment & Plan: The patient noted increased weakness and generally not feeling well. CXR showed new changes in RLL read by radiologist as "developing pneumonic infiltrate suspected". Cefepime started on 03/26. Will change to levofloxacin 750mg q48h, monitor for changes in mentation. If tolerating may d/c tomorrow. (2) Acute systolic CHF (congestive heart failure) Assessment & Plan: He presented with SOB. BNP was elevated, but he didn't appear to be in an acute exacerbation. His last echocardiogram (01/2018) showed an ejection fraction of 30%. He has been on and off diuretics over the last several months. His current weight is actually down significantly from his last admission. Carvedilol has been restarted and his losartan has been discontinued secondary to the hyperkalemia. He also appears to be maintaining his volume status without the diuretics. (3) Aortic stenosis, severe Assessment & Plan: This was also noted on his last echocardiogram. He will follow up with Dr. Dion Champagne regarding this. He seems to be quite sensitive to diuresis because of the . He does have some orthostasis, so will continue to hold his diuretic and monitor. (4) Hyperkalemia Status: Chronic Assessment & Plan: He did have an elevated potassium on admission. He has had hyperkalemia mild-moderate for the past several years. He was on losartan as an outpatient, but it has been discontinued as above. His K+ did increased today so treatment with D50, insulin and calcium was ordered per Dr. Candice Machado early this am. Will recheck a BMP this afternoon. (5) Pulmonary hypertension, moderate to severe Assessment & Plan: His last echocardiogram did reveal right ventricular pressures of 72mmHg. (6) CAD (coronary artery disease) Status: Chronic Assessment & Plan: He is on chronic treatment with aspirin. (7) CKD (chronic kidney disease) stage 3, GFR 30-59 ml/min Status: Chronic Assessment & Plan: His creatinine improved with some gentle IV fluids. He is currently (2.1) slightly above his baseline of approximately 1.8-1.9. (8) DM type 2 (diabetes mellitus, type 2) Status: Chronic Assessment & Plan: He was on Amaryl 6mg daily as an outpatient. He has had persistent hyperglycemia despite sliding scale level #2 coverage. We did restart his Amaryl at a lower dose (2mg daily), secondary to renal function. BS still consistently over 200. Added Lantus 10u at HS. Continue to monitor glucoses. Exam Sepsis Risk: No Definite Risk ESQUEDA BARRINGTON SHORT DO Mar 28, 2018 12:17
[2018-03-28] MEDS: INSULIN GLARGINE 100 U/ML 3 ML PEN SUBQ SCH (20:39)
[2018-03-29 03:10] VITALS: BP 117/78
[2018-03-29 07:45] VITALS: BP 121/74
[2018-03-29 08:13] VITALS: BP 137/85
[2018-03-29] MEDS: CARVEDILOL 25 MG TABLET PO SCH (08:49)
[2018-03-29] MEDS: ASPIRIN 81 MG ENTERIC COATED PO SCH (08:50)
[2018-03-29] MEDS: GLIMEPIRIDE 2 MG TAB PO SCH (08:50)
[2018-03-29] MEDS ORDERED: GLIM2TAB43 PO (09:06)
--- NOTE | 2018-03-29 09:30 | Hospitalist Depart ---
Discharge Summary Reason for Hosp/Final Diag: (1) Acute systolic CHF (congestive heart failure) Hospital Course & Plan: He presented with SOB. BNP was elevated, but he didn't appear to be in an acute exacerbation. His last echocardiogram (01/2018) showed an ejection fraction of 30%. He has been on and off diuretics over the last several months. His current weight is actually down significantly from his last admission. Carvedilol has been restarted and his losartan has been discontinued secondary to the hyperkalemia. He also appears to be maintaining his volume status without the diuretics. (2) Aortic stenosis, severe Hospital Course & Plan: This was also noted on his last echocardiogram. He will follow up with Dr. Dion Santana regarding this. He seems to be quite sensitive to diuresis because of the . (3) Hyperkalemia Status: Chronic Hospital Course & Plan: He did have an elevated potassium on admission. He has had hyperkalemia mild-moderate for the past several years. He was on losartan as an outpatient, but it has been discontinued as above. HIs potassium remains slightly above normal. (4) Pulmonary hypertension, moderate to severe Hospital Course & Plan: His last echocardiogram did reveal right ventricular pressures of 72mmHg. (5) CAD (coronary artery disease) Status: Chronic Hospital Course & Plan: He is on chronic treatment with aspirin. (6) CKD (chronic kidney disease) stage 3, GFR 30-59 ml/min Status: Chronic Hospital Course & Plan: His creatinine improved with some gentle IV fluids. He is currently (2.1) slightly above his baseline of approximately 1.8-1.9. (7) DM type 2 (diabetes mellitus, type 2) Status: Chronic Hospital Course & Plan: He was on Amaryl 6mg daily as an outpatient. He has had persistent hyperglycemia despite sliding scale level #2 coverage. We did restart his Amaryl at a lower dose (2mg daily), secondary to renal function. Departure Latest Vital Signs Vital Signs 03/29/18 03/29/18 03:10 08:13 Temp 97.0 Pulse 64 Resp 16 B/P (MAP) 137/85 (102) Pulse Ox 92 O2 Delivery Room Air Weight (Pounds): 184 Weight (Ounces): 6.0 Result Diagram: 03/28/18 0525 03/29/18525 Condition: Improved Discharge: Home, Self Care Discharge Instructions Home Meds Active Scripts Glimepiride (GLIMEPIRIDE) 2 Mg Tablet, 2 MG PO QDAY, #30 TAB Prov:HODAN MIRZA DO 03/29/18 Reported Medications Carvedilol (COREG) 25 Mg Tablet, 25 MG PO BID, #10 TAB 08/01/16 Aspirin (Aspirin Ec) 81 Mg Tablet.dr, 81 MG PO QDAY, 0 Refills 05/29/08 Discontinued Reported Medications Glimepiride (Amaryl) 2 Mg Tablet, 6 MG PO QAM 07/15/11 Losartan Potassium (LOSARTAN POTASSIUM) 25 Mg Tablet, 25 MG PO QDAY 09/25/15 Multivitamins (Multivitamin) 1 Tab Tablet, 1 TAB PO DAILY 07/15/11 Atorvastatin Calcium (Lipitor) 20 Mg Tablet, 40 MG PO QHS, 0 Refills 05/29/08 Discontinued Scripts Furosemide (FUROSEMIDE) 40 Mg Tablet, 1 TAB PO DAILY, #30 TAB 1 Refill Prov:MACY BALTAZAR MD 01/29/18 Cephalexin Monohydrate (CEPHALEXIN) 250 Mg Cap, 250 MG PO QID for 10 Days, #40 CAP 0 Refills Prov:MACY BALTAZAR MD 01/29/18 Nitroglycerin (NITROGLYCERIN) 0.4 Mg Tab.subl, 0.4 MG SL Q5MIN PRN for CHEST PAIN, #1 BOTTLE Prov:SYLVIA BALTAZAR MD 08/01/16 Diet: Diabetic Activity: As Tolerated Special Instructions: Check blood sugar before meals and at bedtime. Follow prescribed diet and monitor intake of high potassium foods. Monitor your weight daily and keep a record. Copies to: SIMI SANTANA MD ; Venous Thromboembolism Antithrombotics Is Pt On Any Antithrombotics?: No HODAN MIRZA DO Mar 29, 2018 09:30
== END 2018-03-29 10:50 | disposition home or self-care (01) | DRG 291 ==
LOC: ER 09:35 → MED 13:48
PROVIDERS: ADMIT Family Medicine; ATTEND Family Medicine
DX: I13.0 Hypertensive heart and chronic kidney disease with heart failure and stage 1 through stage 4 chronic kidney disease, or unspecified chronic kidney disease (principal); J18.9 Pneumonia, unspecified organism; I50.22 Chronic systolic (congestive) heart failure; E87.1 Hypo-osmolality and hyponatremia; E11.22 Type 2 diabetes mellitus with diabetic chronic kidney disease; E11.65 Type 2 diabetes mellitus with hyperglycemia; N18.3 Chronic kidney disease, stage 3 (moderate); E87.5 Hyperkalemia; I25.10 Atherosclerotic heart disease of native coronary artery without angina pectoris; I27.20 Pulmonary hypertension, unspecified; I35.0 Nonrheumatic aortic (valve) stenosis; R53.1 Weakness; I25.2 Old myocardial infarction; Z23 Encounter for immunization; Z79.84 Long term (current) use of oral hypoglycemic drugs
CPT/HCPCS: 36415; 36416; 71045; 71046; 82040; 82247; 82310; 82374; 82435; 82565; 82947; 82948; 83880; 84075; 84132; 84155; 84295; 84450; 84460; 84484; 84520; 85025; 85610; 85730; 90471; 90674; 93005; 94640; 96360; 97161; 97166; 99284; J0610; J0692; J1815; J1940; J7030; J7040; J7050; J8597

== ENCOUNTER → 2018-03-21 | Outpatient (CLI) | payer MEDICARE ==
[~2018-03-21] MED LIST changes: +GLIM2TAB43 PO
[2018-03-22 11:02] VITALS: BMI 23.2
== END ==
LOC: AMB 09:08
PROVIDERS: ATTEND Nurse Practitioner
DX: R06.02 Shortness of breath (principal); R42 Dizziness and giddiness; R53.83 Other fatigue; E11.65 Type 2 diabetes mellitus with hyperglycemia
CPT/HCPCS: A0425; A0427

== ENCOUNTER 2018-04-14 08:15 | Outpatient (RCR) | payer MEDICARE ==
[2018-03-22 11:02] VITALS: BMI 23.2
[~2018-04-14 08:15] MED LIST changes: +GLIM2TAB43 PO; -LOSA25TA52 PO; +LOSA25TA57 PO
--- NOTE | 2018-04-14 17:26 | PT INITIAL EVALUATION ---
MEDICAL DIAGNOSIS: generalized weakness TREATMENT DIAGNOSIS: same, decreased endurance, altered gait, knee pain DATE OF ONSET: 03/18/18 SUBJECTIVE: Tanner Gill presents to physical therapy with complaints of generalized weakness in his B UE's, core, and B LE's that became worse with his most recent hospitalization. He reports that he started to experience shortness of breath and not feeling well. As a result, he presented to [facility] and felt like they did not do anything for him. Therefore, he drove down to [facility] and was admitted to the hospital for 3 days. He reports that he feels like he became off schedule with his medications. He reports that they took off a lot of fluids and as a result he feels much better. 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 He reports that he was encouraged to get into a program to improve strength and he states that physical therapy has worked in the past and would like to participate in a program for 6 weeks until he feels like he can do everything on his own. He reports that he has a defibrillator placed a few years back. Pain location is R anterior knee pain and described as achy. Pain scale is 5 on a ten point pain scale. Pain is worse with walking and better with nothing. 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 ROM: Trunk AROM; extension: minimal restriction with muscular end feel. flexion, R/L sidegliding: NIL. Thoracic AROM: extension: severe limitation with muscular end feel. flexion: NIL. Cervical AROM: flexion: NIL, extension: moderate restriction, R/L sidebending, R/L rotation: minimal to moderate restriction with muscular end feels Strength: B shoulder flexion, abduction, extension, scaption: 4/5. 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 Core: 3+/5. B hip flexion, abduction, adduction, extension, B knee flexion and extension, B ankle DF and PF: 4/5. He did not experience any pain with MMT's. Palpation: TTP: R anterior knee Special Tests: Repeated knee extension: decreased R knee pain with ambulation from 09/24 to 05/27. 6 minute walk test: 600 feet. SPO2%: 99%, HR: 77 bpm, BP: 140/88. Mobility: Independent Gait: He demonstrated severe thoracic kyphosis during ambulation and without AD he demonstrates the following gait mechanics: decreased B feet clearance, normal base of support, decreased B UE swing, and decreased B pelvic mobility. Balance: Will test in the future ASSESSMENT: Tanner will benefit from skilled physical therapy addressing the listed impairments to improve function and QOL. Short Term Goals 6 weeks: Pt will be able to improve endurance as demonstrated by the 6 minute walk test from baseline to over 1100 feet to improve function and QOL. 6 weeks: Pt will be independent with his home exercise program. 6 weeks: Pt will be able to demonstrate B UE, core, and B LE from baseline to 4+/5 or greater to improve function and QOL. Patient's Goals improve strength, endurance, and posture PLAN: Patient to be seen for Manual Therapy/STM/MET Strengthening/condition Range of Motion Spinal Stabilization Work Hardening/Cond Stretching Neuromuscular Re-ed Closed Chain Program Posture/Body mechanics Gait Trg/Balance Trg Home Exercise Program Therapeutic Activities 2x/Week for 6 Weeks If you have any questions, comments, or concerns about this report or plan, please contact me at . Thank you, Remberto Hinojosa, PT, DPT MTDD
--- NOTE | 2018-04-19 14:10 | PT INITIAL EVALUATION ---
MEDICAL DIAGNOSIS: venous insufficiency ulcers at R) Medial ankle/foot TREATMENT DIAGNOSIS: same DATE OF ONSET: 02/01/18 SUBJECTIVE: Upon admission to hospital, pt's wound dimensions at R) Medial ankle were as follows: R) medial ankle; proximal wound: 1.7cm L x 0.7cm W x 0.2cm D R) Medial ankle; middle wound: 1.7cm L x 3cm W x 0.2cm D R) Medial ankle; distal wound: 1.6cm L x 0.8cm W x 0.2cm D Pt arrives today after discharge from [facility], followed by admission and then d/c from [facility]. Pt notes that he will be doing regular physical therapy as well to regain strength and endurance that he feels are less following these recent hospitalizations. 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 Areas fully callused with obvious drainage beneath. Following non-excisional debridement with the use of scissors and tweezers to a depth of subcutaneous tissue the following dimensions were revealed. R) medial ankle: 0.5cm L x 0.3cm W x 0.2cm D R) medial foot: 1cm L x 0.5cm W x 0.3cm D ASSESSMENT: Pt to continue with dressing changes and follow up every other week for wound care to complete debridement as indicated and modifications to wound care topical products and dressings to optimize wound healing with a moist environment. Short Term Goals 1: Pt to maintain clean, dry and intact dressings in between wound care visits and complete home dressings as instructed. 2: Wounds base to demonstrate 100% granulation tissue with no s/s of infection. 3: Wounds to gradually epithelialize from the edges inward and demonstrate 100% closure. 4: Pt to be educated on preventive foot care to prevent further ulcerations. Patient's Goals Wounds to heal without further complications PLAN: Advanced PT wound care to include conservative, selective sharps debridement as well as advanced wound care product selection and application 1- 2x/week for Up to 90 days. Please refer to standard PT eval for plan of care related to strengthening as well. Thank you for this referral. If you have any questions, comments, or concerns about this report or plan, please contact me at . H. Agustina Powell, PT, MPT, OMS MTDD
--- NOTE | 2018-05-20 14:09 | PT PLAN OF CARE ---
Physician: Ruddy Bañuelos MD Patient is being seen: 1 examination + treatment Therapist: Remberto Hinojosa, PT, DPT Medical Diagnosis: generalized weakness Treatment Diagnosis: same, decreased endurance, altered gait, knee pain Date of Onset: 03/18/18 Date of Initial Evaluation: 04/14/18 Date patient was last seen: 04/29/18 Number of treatments: 2 Number of cancellations/No shows: 1 INTERVENTIONS: Manual Therapy/STM/MET Strengthening/condition Range of Motion Spinal Stabilization Work Hardening/Cond Stretching Neuromuscular Re-ed Closed Chain Program Posture/Body mechanics Gait Trg/Balance Trg Home Exercise Program Therapeutic Activities GOALS: 6 weeks: Pt will be able to improve endurance as demonstrated by the 6 minute walk test from baseline to over 1100 feet to improve function and QOL. 6 weeks: Pt will be independent with his home exercise program. 6 weeks: Pt will be able to demonstrate B UE, core, and B LE from baseline to 4+/5 or greater to improve function and QOL. PATIENT'S GOAL: improve strength, endurance, and posture Status of Patient's Goals: Unknown Patient Compliance: Poor Prognosis: Good Reasons for continuing therapy: This is a discharge note for Tanner Gill. He no showed his last schedule visit and changed his phone number; therefore, we cannot get a hold of him. As a result, he will be discharged from formal PT. Posture: He demonstrates forward head, severe thoracic kyphosis, decreased lumbar lordosis. ROM: Trunk AROM; extension: minimal restriction with muscular end feel. flexion, R/L sidegliding: NIL. Thoracic AROM: extension: severe limitation with muscular end feel. flexion: NIL. Cervical AROM: flexion: NIL, extension: moderate restriction, R/L sidebending, R/L rotation: minimal to moderate restriction with muscular end feels Strength: B shoulder flexion, abduction, extension, scaption: 4/5. 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 Core: 3+/5. B hip flexion, abduction, adduction, extension, B knee flexion and extension, B ankle DF and PF: 4/5. He did not experience any pain with MMT's. Palpation: TTP: R anterior knee Special Tests: Repeated knee extension: decreased R knee pain with ambulation from 09/24 to 05/27. 6 minute walk test: 600 feet. SPO2%: 99%, HR: 77 bpm, BP: 140/88. Mobility: Independent If you have any questions, please contact me at [phone]. Thank you, Remberto Hinojosa, PT, DPT MTDD
== END 2018-04-14 18:00 | disposition home or self-care (01) ==
LOC: PT 08:15
PROVIDERS: ATTEND Family Medicine
DX: M62.81 Muscle weakness (generalized) (principal); M25.561 Pain in right knee; Z95.2 Presence of prosthetic heart valve; Z95.810 Presence of automatic (implantable) cardiac defibrillator; S91.001A Unspecified open wound, right ankle, initial encounter
CPT/HCPCS: 97161; 97162